=== PATIENT | female | born 1940 | race Caucasian/White ===

== ENCOUNTER 2016-06-13 09:10 | Inpatient (IN) ==
--- NOTE | 2016-06-13 09:21 | Emergency Department Note ---
Disposition Clinical Impression: Pancreatitis Qualifiers: Chronicity: acute Pancreatitis type: unspecified pancreatitis type Acute pancreatitis complication: unspecified Qualified Code(s): K85.90 - Acute pancreatitis without necrosis or infection, unspecified Disposition: Admitted As Inpatient Condition: Good Referrals: Gokul Howard MD [Primary Care Provider] - Forms: Work/School Release, ED Satisfaction Letter Time of Disposition: 11:25 Abdominal Pain HPI - General Chief Complaint: ED Abdominal Pain Stated Complaint: abdominal pain Time Seen by Provider: 06/13/16 09:20 Source: patient Mode of arrival: ambulatory Limitations: no limitations Nursing Notes Reviewed: Yes Vital Signs Reviewed: Yes - History of Present Illness HPI Narrative: 75-year-old female with history of pancreatitis status post a Whipple 5 years ago presents with worsening diffuse abdominal pain over the last 24 hours that is greatest in the left lower quadrant. This is associated with mild subjective fever. This is associated with 2 episodes of emesis today that were nonbloody and nonbilious. Patient describes one episode of diarrhea yesterday that was nonbloody and non-melanotic. She states that this is somewhat similar to prior episodes of pancreatitis, but the pain is not in her typical location. She states that she last was admitted for pancreatitis about 3 years ago, but has had 2 mild episodes that she self treated at home in the last year. She also admits to history of diverticulitis. She states that she is status post appendectomy. She denies any blurred vision, chest pain, shortness of breath, pain radiating to the back, changes in urination, vaginal bleeding or discharge. She denies any extremity pain or swelling. Pain Scale: 8 - Related Data Allergies Allergy/AdvReac Type Severity Reaction Status Date / Time JAIRON Inhibitors Allergy Anaphylaxis Verified 06/13/16 09:14 clindamycin Allergy Rash Verified 06/13/16 09:14 Penicillins Allergy Rash Verified 06/13/16 09:14 ivp dye AdvReac See Uncoded 02/08/16 09:15 Comments All systems ED: reviewed and negative except as stated. Abdominal Pain PMH - Past Medical History Medical history: Reports: diabetes, hypertension, myocardial infarction Female Surgical History: Reports: appendectomy, herniorrhaphy CRITICAL CARE NURSE PRACTITIONER history: Reports: no CRITICAL CARE NURSE PRACTITIONER history, bilateral tubal ligation Psychiatric history: Reports: no psych history - Social History Smoking status: Never smoker Alcohol use: Reports: none Drug use: Reports: none Physical Exam - Head Head exam: atraumatic, normocephalic, normal inspection - Eye Eye exam: Present: normal appearance, PERRL, EOMI - ENT ENT exam: normal exam, normal oropharynx, mucous membranes moist - Neck Neck exam: Present: normal inspection, full ROM, trachea midline - Chest Chest inspection: Present: normal inspection, symmetric chest wall rise - Respiratory Respiratory exam: Clear to auscultation bilaterally without wheezes rales or rhonchi Cardiovascular Cardiovascular exam: Present: regular rate, normal rhythm, normal heart sounds - Abdominal Exam Diminished soft and diffusely tender with greatest tenderness in the left lower quadrant. - Extremities Exam Extremities exam: Present: normal inspection, full ROM - Expanded Lower Extremity Exam Hip/Pelvis exam: Present: normal inspection, full ROM - Back Exam Back exam: Present: normal inspection, full ROM. Absent: tenderness, CVA tenderness (R), CVA tenderness (L) - Neurological Exam Neurological exam: Present: alert, oriented X3, CN II-XII intact - Psychiatric Psychiatric exam: Present: normal affect, normal mood - Skin Skin exam: Present: warm, dry, intact, normal color - General Limitations: no limitations General appearance: alert Course - Reevaluation(s) Reevaluation #1: Patient with lipase elevated to [address] scan concerning for pancreatitis without definite complication. White blood cells elevated at 14. Pain is improved, but not resolved after Dilaudid administration. Lactate is elevated to 2.3. No signs of an infectious process at this time concerning for sepsis. Patient received 1 L of normal saline and will receive a saline infusion. She will receive analgesia and be admitted to the hospitalist for further management. Time: 11:24 Reevaluation #2: Accepted by Dr. Kinsey for further care. Time: 11:30 Vital Signs Temperature 98.2 F 06/13/16 09:11 Pulse Rate 100 06/13/16 09:11 Respiratory Rate 17 06/13/16 09:11 Blood Pressure 221/94 06/13/16 09:11 O2 Sat by Pulse Oximetry 95 06/13/16 09:11 Temperature 98.2 F 06/13/16 09:11 Pulse Rate 82 06/13/16 11:28 Respiratory Rate 18 06/13/16 11:28 Blood Pressure 164/65 06/13/16 11:28 O2 Sat by Pulse Oximetry 97 06/13/16 11:28 Oxygen Delivery Oxygen Delivery Room Air Abdominal Pain - Lab Data Result diagrams: 06/13/16 09:56 06/13/16 09:56 Lab Results 06/13/16 06/13/16 06/13/16 Range/Units 09:56 09:56 09:56 WBC 14.1 H (4.3-11.1) K/mcL RBC 4.64 (3.82-4.97) M/mcL Hgb 13.1 (11.5-15.4) g/dL Hct 38.8 (35.3-44.9) % MCV 83.6 (83.0-100.0) fL MCH 28.2 (28.0-33.3) pg MCHC 33.8 (31.6-35.5) g/dL RDW 13.3 (11.5-14.5) % Plt Count 205 (140-400) K/mcL MPV 9.9 (9.4-12.4) fL Immature Gran % 0.3 (0-4) % Seg Neutrophils % 88.6 % Lymphocytes % 4.3 % Monocytes % 6.2 % Eosinophils % 0.2 % Basophils % 0.4 % Neutrophils # 12.5 H (1.6-8.9) K/mcL Lymphocytes # 0.6 (0.6-4.6) K/mcL Monocytes # 0.9 (0.0-1.3) K/mcL Eosinophils # 0.0 (0.0-0.6) K/mcL Basophils # 0.1 (0.0-0.2) K/mcL Sodium (136-145) mEq/L Potassium (3.5-4.5) mEq/L Chloride (98-109) mEq/L Carbon Dioxide (19-29) mEq/L BUN (7-20) mg/dL Creatinine (0.57-1.11) mg/dL Est GFR ( Amer) (> 60) Est GFR (Non-Af Amer) (> 60) BUN/Creatinine Ratio (6-26) Glucose (70-99) mg/dL Calculated Osmolality (280-300) Lactic Acid 2.3 H (0.5-2.2) mmol/L Calcium (8.6-10.8) mg/dL Total Bilirubin (0.2-1.2) mg/dL Direct Bilirubin (0.0-0.5) mg/dL Indirect Bilirubin (0.0-1.2) mg/dL AST (5-34) Units/L ALT (0-55) Units/L Alkaline Phosphatase (38-126) Units/L Troponin I 0.00 (0-0.03) ng/mL Serum Total Protein (6.0-8.3) g/dL Albumin (3.5-5.0) g/dL Globulin (2.4-3.5) g/dL Albumin/Globulin Ratio (1.1-2.2) Lipase (8-78) Units/L 06/13/16 Range/Units 09:56 WBC (4.3-11.1) K/mcL RBC (3.82-4.97) M/mcL Hgb (11.5-15.4) g/dL Hct (35.3-44.9) % MCV (83.0-100.0) fL MCH (28.0-33.3) pg MCHC (31.6-35.5) g/dL RDW (11.5-14.5) % Plt Count (140-400) K/mcL MPV (9.4-12.4) fL Immature Gran % (0-4) % Seg Neutrophils % % Lymphocytes % % Monocytes % % Eosinophils % % Basophils % % Neutrophils # (1.6-8.9) K/mcL Lymphocytes # (0.6-4.6) K/mcL Monocytes # (0.0-1.3) K/mcL Eosinophils # (0.0-0.6) K/mcL Basophils # (0.0-0.2) K/mcL Sodium 139 (136-145) mEq/L Potassium 3.9 (3.5-4.5) mEq/L Chloride 104 (98-109) mEq/L Carbon Dioxide 25 (19-29) mEq/L BUN 11 (7-20) mg/dL Creatinine 0.84 (0.57-1.11) mg/dL Est GFR ( Amer) > 60 (> 60) Est GFR (Non-Af Amer) > 60 (> 60) BUN/Creatinine Ratio 13 (6-26) Glucose 264 H (70-99) mg/dL Calculated Osmolality 297 (280-300) Lactic Acid (0.5-2.2) mmol/L Calcium 9.2 (8.6-10.8) mg/dL Total Bilirubin 0.6 (0.2-1.2) mg/dL Direct Bilirubin 0.3 (0.0-0.5) mg/dL Indirect Bilirubin 0.3 (0.0-1.2) mg/dL AST 20 (5-34) Units/L ALT 19 (0-55) Units/L Alkaline Phosphatase 77 (38-126) Units/L Troponin I (0-0.03) ng/mL Serum Total Protein 7.3 (6.0-8.3) g/dL Albumin 3.7 (3.5-5.0) g/dL Globulin 3.6 H (2.4-3.5) g/dL Albumin/Globulin Ratio 1.0 L (1.1-2.2) Lipase 1414 H (8-78) Units/L - EKG Data EKG attestation: Yes I reviewed and interpreted this EKG. EKG results narrative: Normal sinus rhythm at 91 with normal axis and intervals. No ST elevation or depression. No T-wave inversions or flattening. No pathologic Q waves. No EKG available sign.
[2016-06-13] MEDS ORDERED: Ondansetron 4 MG/2 ML VIAL IV STA (09:37)
[2016-06-13] MEDS ORDERED: *HR* HYDROmorphone (PF) 1 MG/ML SYRINGE IVP ONE (09:38)
[2016-06-13] MEDS ORDERED: 0.9 % Sodium Chloride 1,000 ML IVC ONE (09:44)
[2016-06-13 10:06] LABS: Basophils # 0.1 K/mcL (0.0-0.2); Basophils % 0.4 %; Eosinophils % 0.2 %; Hematocrit 38.8 % (35.3-44.9); Hemoglobin 13.1 g/dL (11.5-15.4); Immature Granulocytes % 0.3 % (0-4); Lymphocytes # 0.6 K/mcL (0.6-4.6); Lymphocytes % 4.3 %; Mean Corpuscular HGB Conc 33.8 g/dL (31.6-35.5); Mean Corpuscular Hemoglobin 28.2 pg (28.0-33.3); Mean Corpuscular Volume 83.6 fL (83.0-100.0); Mean Platelet Volume 9.9 fL (9.4-12.4); Monocytes # 0.9 K/mcL (0.0-1.3); Monocytes % 6.2 %; Neutrophils # 12.5 K/mcL (1.6-8.9); Platelet Count 205 K/mcL (140-400); Red Blood Count 4.64 M/mcL (3.82-4.97); Red Cell Distribution Width 13.3 % (11.5-14.5); Segmented Neutrophils % 88.6 %
[2016-06-13 10:23] LABS: Alanine Aminotransferase 19 Units/L (0-55); Albumin 3.7 g/dL (3.5-5.0); Alkaline Phosphatase 77 Units/L (38-126); Aspartate Amino Transferase 20 Units/L (5-34); BUN/Creatinine Ratio 13 (6-26); Bilirubin,Direct 0.3 mg/dL (0.0-0.5); Bilirubin,Indirect 0.3 mg/dL (0.0-1.2); Bilirubin,Total 0.6 mg/dL (0.2-1.2); Blood Urea Nitrogen 11 mg/dL (7-20); Calcium 9.2 mg/dL (8.6-10.8); Carbon Dioxide 25 mEq/L (19-29); Chloride 104 mEq/L (98-109); Globulin 3.6 g/dL (2.4-3.5); Glucose 264 mg/dL (70-99); Osmolality,Calculated 297 (280-300); Potassium 3.9 mEq/L (3.5-4.5); Sodium 139 mEq/L (136-145); Total Protein 7.3 g/dL (6.0-8.3); eGFR For African Americans > 60 (> 60); eGFR For Non-African Americans > 60 (> 60)
[2016-06-13 10:46] LABS: Lipase 1414 Units/L (8-78)
--- NOTE | 2016-06-13 11:12 | Emergency Department Note ---
Disposition Clinical Impression: Pancreatitis Disposition: Admitted As Inpatient Condition: Good General Adult HPI - General Chief complaint: ED Abdominal Pain Stated complaint: abdominal pain Time Seen by Provider: 06/13/16 09:20 Source: patient Mode of arrival: ambulatory Limitations: no limitations - History of Present Illness Pain Scale: 6 - Related Data Home Medications Medication Instructions Recorded Confirmed Aspirin/Calcium Carbonate/Mag 325 mg PO DAILY 06/13/16 06/13/16 [Aspirin Buffered 325 mg Tab] Biotrust Ic-5 2 cap PO DAILY 06/13/16 06/13/16 LORazepam [Ativan] 0.5 mg PO BID PRN 06/13/16 06/13/16 Metformin HCl [Metformin HCl ER] 1,000 mg PO DAILY 06/13/16 06/13/16 Metoprolol XL (24 HR) Succ [Toprol 25 mg PO BID 06/13/16 06/13/16 XL] Pantoprazole Sodium [Protonix] 40 mg PO DAILY 06/13/16 06/13/16 Allergies Allergy/AdvReac Type Severity Reaction Status Date / Time JAIRON Inhibitors Allergy Anaphylaxis Verified 06/13/16 09:14 clindamycin Allergy Rash Verified 06/13/16 09:14 Penicillins Allergy Rash Verified 06/13/16 09:14 ivp dye Allergy See Uncoded 06/13/16 11:42 Comments Past Medical History - Past Medical History Medical history: Reports: diabetes, hypertension, myocardial infarction Surgical history: Reports: appendectomy, cholecystectomy Psychiatric history: Reports: no psych history MANGANESE BREAKER history: Reports: no MANGANESE BREAKER history, bilateral tubal ligation - Social History Smoking Status: Never smoker Smokeless Tobacco Status: No Alcohol use: Reports: none Drug use: Reports: none Physical Exam - General Limitations: no limitations General appearance: alert Course - Reevaluation(s) Reevaluation #1: I saw the patient with the resident, Dr. Pandya. Patient presented with left upper quadrant and left lower quadrant abdominal pain for several days. On exam she is mostly tender to the left lower quadrant. She has prior history of pancreatitis and says it feels like that. 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 Patient has had some pain relief with the medicine she has been given. Laboratory work shows a lipase of 1400. CAT scan shows a lot of inflammatory changes around the pancreas consistent with pancreatitis. Patient will need to be admitted to the hospital. She has no indications of acute surgical abdominal process. Time: 11:12 Vital Signs Temperature 98.2 F 06/13/16 09:11 Pulse Rate 100 06/13/16 09:11 Respiratory Rate 17 06/13/16 09:11 Blood Pressure 221/94 06/13/16 09:11 O2 Sat by Pulse Oximetry 95 06/13/16 09:11 Temperature 100.2 F H 06/13/16 18:29 Pulse Rate 80 06/13/16 18:29 Respiratory Rate 15 06/13/16 18:29 Blood Pressure 162/59 06/13/16 18:29 O2 Sat by Pulse Oximetry 95 06/13/16 18:29 Oxygen Delivery Oxygen Delivery Room Air Medical Decision Making - Lab Data Result diagrams: 06/13/16 09:56 06/13/16 09:56 Lab Results 06/13/16 06/13/16 06/13/16 Range/Units 09:56 09:56 09:56 WBC 14.1 H (4.3-11.1) K/mcL RBC 4.64 (3.82-4.97) M/mcL Hgb 13.1 (11.5-15.4) g/dL Hct 38.8 (35.3-44.9) % MCV 83.6 (83.0-100.0) fL MCH 28.2 (28.0-33.3) pg MCHC 33.8 (31.6-35.5) g/dL RDW 13.3 (11.5-14.5) % Plt Count 205 (140-400) K/mcL MPV 9.9 (9.4-12.4) fL Immature Gran % 0.3 (0-4) % Seg Neutrophils % 88.6 % Lymphocytes % 4.3 % Monocytes % 6.2 % Eosinophils % 0.2 % Basophils % 0.4 % Neutrophils # 12.5 H (1.6-8.9) K/mcL Lymphocytes # 0.6 (0.6-4.6) K/mcL Monocytes # 0.9 (0.0-1.3) K/mcL Eosinophils # 0.0 (0.0-0.6) K/mcL Basophils # 0.1 (0.0-0.2) K/mcL Sodium (136-145) mEq/L Potassium (3.5-4.5) mEq/L Chloride (98-109) mEq/L Carbon Dioxide (19-29) mEq/L BUN (7-20) mg/dL Creatinine (0.57-1.11) mg/dL Est GFR ( Amer) (> 60) Est GFR (Non-Af Amer) (> 60) BUN/Creatinine Ratio (6-26) Glucose (70-99) mg/dL Est Mean Plasma Glucose mg/dl Hemoglobin A1c ( - 5.6) % Calculated Osmolality (280-300) Lactic Acid 2.3 H (0.5-2.2) mmol/L Calcium (8.6-10.8) mg/dL Total Bilirubin (0.2-1.2) mg/dL Direct Bilirubin (0.0-0.5) mg/dL Indirect Bilirubin (0.0-1.2) mg/dL AST (5-34) Units/L ALT (0-55) Units/L Alkaline Phosphatase (38-126) Units/L Troponin I 0.00 (0-0.03) ng/mL Serum Total Protein (6.0-8.3) g/dL Albumin (3.5-5.0) g/dL Globulin (2.4-3.5) g/dL Albumin/Globulin Ratio (1.1-2.2) Lipase (8-78) Units/L 06/13/16 06/13/16 Range/Units 09:56 09:56 WBC (4.3-11.1) K/mcL RBC (3.82-4.97) M/mcL Hgb (11.5-15.4) g/dL Hct (35.3-44.9) % MCV (83.0-100.0) fL MCH (28.0-33.3) pg MCHC (31.6-35.5) g/dL RDW (11.5-14.5) % Plt Count (140-400) K/mcL MPV (9.4-12.4) fL Immature Gran % (0-4) % Seg Neutrophils % % Lymphocytes % % Monocytes % % Eosinophils % % Basophils % % Neutrophils # (1.6-8.9) K/mcL Lymphocytes # (0.6-4.6) K/mcL Monocytes # (0.0-1.3) K/mcL Eosinophils # (0.0-0.6) K/mcL Basophils # (0.0-0.2) K/mcL Sodium 139 (136-145) mEq/L Potassium 3.9 (3.5-4.5) mEq/L Chloride 104 (98-109) mEq/L Carbon Dioxide 25 (19-29) mEq/L BUN 11 (7-20) mg/dL Creatinine 0.84 (0.57-1.11) mg/dL Est GFR ( Amer) > 60 (> 60) Est GFR (Non-Af Amer) > 60 (> 60) BUN/Creatinine Ratio 13 (6-26) Glucose 264 H (70-99) mg/dL Est Mean Plasma Glucose 169 mg/dl Hemoglobin A1c 7.5 H ( - 5.6) % Calculated Osmolality 297 (280-300) Lactic Acid (0.5-2.2) mmol/L Calcium 9.2 (8.6-10.8) mg/dL Total Bilirubin 0.6 (0.2-1.2) mg/dL Direct Bilirubin 0.3 (0.0-0.5) mg/dL Indirect Bilirubin 0.3 (0.0-1.2) mg/dL AST 20 (5-34) Units/L ALT 19 (0-55) Units/L Alkaline Phosphatase 77 (38-126) Units/L Troponin I (0-0.03) ng/mL Serum Total Protein 7.3 (6.0-8.3) g/dL Albumin 3.7 (3.5-5.0) g/dL Globulin 3.6 H (2.4-3.5) g/dL Albumin/Globulin Ratio 1.0 L (1.1-2.2) Lipase 1414 H (8-78) Units/L Attestation Statement - Attestation Attestation: I, Dr. Apple, examined this patient [id number] and my medical decision- making was reviewed with Dr. Pandya, Resident Physician. I agree with the documented findings, disposition and treatment plan as described except to the extent set forth below. Please see my progress notes for details.
[2016-06-13] MEDS ORDERED: Naloxone 0.4 MG/ML INJ IVP PRN (12:11)
[2016-06-13] MEDS ORDERED: D5% in Water 1,000 ML IVC PRN (12:18)
[2016-06-13] MEDS ORDERED: Dextrose Gel 15 GM PO PRN ×2 (12:18)
[2016-06-13] MEDS ORDERED: *HR* Dextrose 50 % in Water (Syg) 50 ML SYRINGE IVP PRN (12:18)
--- NOTE | 2016-06-13 12:31 | Internal Med History&Physical ---
Date of Encounter: 06/13/16 Time of Encounter: 12:19 Assessment and Plan (1) Pancreatitis Current visit: Yes Status: Acute Patient had whipple surgery in 2007 for pancreatic mass and has had recurrent pancreatitis since that time. She reports severe abdominal pain, nausea and vomiting today. Lipase elevated to 1414. Lactate of 2.3. Abdominal CT showed acute interstitial edematous pancreatitis, necrosis could not be evaluated as study was non-contrasted. IV fluids 0.9NS at 100mL/hr NPO IVP dilaudid PRN for abdominal pain IVP zofran PRN for nausea Narcan PRN for respiratory depression. Qualifiers: Chronicity: acute Pancreatitis type: unspecified pancreatitis type Acute pancreatitis complication: unspecified Qualified Code(s): K85.90 - Acute pancreatitis without necrosis or infection, unspecified (2) Type 2 diabetes mellitus Current visit: Yes Status: Acute check Hgb A1c hold metformin check blood sugars Q6hrs while NPO Sliding scale correction dose Q6 hrs hypoglycemic protocol. Qualifiers: Diabetes mellitus complication status: with neurologic complications Diabetes mellitus complication detail: with polyneuropathy Diabetes mellitus intermediate card tender insulin use: without intermediate card tender use Qualified Code(s): E11.42 - Type 2 diabetes mellitus with diabetic polyneuropathy (3) Hypertension Current visit: Yes Status: Acute Patient NPO for pancreatitis. 2.5mg Metoprolol IVP Q8hr. Qualifiers: Hypertension type: essential hypertension Qualified Code(s): I10 - Essential (primary) hypertension (4) DVT prophylaxis Current visit: Yes Status: Acute Ambulate TID anti-embolic stockings Lovenox 40mg SQ daily Internal Medicine - H&P: HPI Chief complaint: abdominal pain, N/V Admitted From: Emergency Dept Plans for Post Hospital Care: Home History of present illness: Ms. Martin is a 75 year old female with hypertension, diabetes, history of pancreatic mass s/p whipple (2007), recurrent pancreatitis who presented to the emergency department today with, complaints of abdominal pain and vomiting. She reports she woke this morning at 4 am with severe abdominal pain and vomited 3 times this morning. Pain was generalize, but more severe on her left side, and was somewhat relieved by the pain medication she received in the ED. She also reports chills. She states that for the last 3 days, she has had mild nausea and a poor appetite, as well as some diarrhea. She also has a mild sore throat that started a few hours ago, along with a mild headache. She denies any chest pain, palpitations, sweats, lightheadedness, numbness or tingling. Evaluation in the ED included an abdominal CT which reported she is s/p whipple with acute interstitial edematous pancreatitis. Lipase was elevated to 1414, lactate was elevated to 2.3. Her WBC was elevated to 14.1, and she was hyperglycemic with blood sugar of 264. ON exam, patient was alert and oriented, in no acute distress. Heart has regular rate and rhythm, lungs are clear bilaterally to auscultation. Past Med Surg Social Fam HX - Past Medical History Medical history: diabetes, GERD, hypertension, myocardial infarction, other ( pancreatic mass s/p whipple, recurrent pancreatitis) Psychiatric history: no psych history - Past Surgical History Surgical History: appendectomy, cholecystectomy, other ([id number]) - Social History Smoking Status: Former smoker (25 pack year history) Smokeless Tobacco Status: No Alcohol use: none, rarely Drug use: none - Family History Mother Living Status: Hx Family Cardiac Disorders: Yes Hx Family Cancer: Yes Father Living Status: Hx Family Cancer: Yes Internal Medicine - H&P: Meds Aspirin/Calcium Carbonate/Mag [Aspirin Buffered 325 mg Tab] 325 mg PO DAILY [History] Biotrust Ic-5 2 cap PO DAILY 06/13/16 [History] LORazepam [Ativan] 0.5 mg PO BID PRN 06/13/16 [History] Metformin HCl [Metformin HCl ER] 1,000 mg PO DAILY 06/13/16 [History] Metoprolol XL (24 HR) Succ [Toprol XL] 25 mg PO BID 06/13/16 [History] Pantoprazole Sodium [Protonix] 40 mg PO DAILY 06/13/16 [History] Allergies JAIRON Inhibitors Allergy (Verified 06/13/16 09:14) Anaphylaxis clindamycin Allergy (Verified 06/13/16 09:14) Rash Penicillins Allergy (Verified 06/13/16 09:14) Rash ivp dye Allergy (Uncoded 06/13/16 11:42) See Comments Patient unsure what her reaction was- All Systems PM: A 10-system review of systems was performed and is negative for pertinent findings except as documented above in the HPI. - Constitutional Constitutional: chills, no fever(s), no night sweats - EENT Eyes: no change in vision, no discharge, no pain, no photophobia Ears: no ear discharge, no ear pain, no tinnitus Nose, mouth and throat: sore throat, no dysphagia, no nasal discharge, no neck pain - Cardiovascular Cardiovascular ROS IM: no chest pain, no diaphoresis, no dyspnea, no lightheadedness, no palpitations, no syncope - Respiratory Respiratory: no cough, no dyspnea, no wheezing, no excessive phlegm production - Gastrointestinal Gastrointestinal: abdominal pain, diarrhea, nausea, vomiting, no hematemesis, no hematochezia, no melena - Genitourinary Genitourinary: no change in urinary stream, no dysuria, no flank pain, no hematuria - Musculoskeletal Musculoskeletal ROS IM: no numbness, no tingling - Integumentary Integumentary IM: no rash, no unusual bruising - Neurological Neurological ROS: headache(s), no confusion, no convulsions, no focal weakness, no numbness, no tingling, no tremor(s) - Hematologic/Lymphatic Hematologic/Lymphatic: no easy bruising - Constitutional Vitals: Temp Pulse Resp BP Pulse Ox 98.2 F 82 18 164/65 97 06/13/16 09:11 06/13/16 11:28 06/13/16 11:28 06/13/16 11:28 06/13/16 11:28 General appearance: Present: A&O X 3, pleasant, no acute distress - Head Head exam: Present: atraumatic, normocephalic - Eye Eye exam: Present: PERRL, conjuntiva pink, sclera anicteric Pupils: Present: PERRL - Neck Neck exam general surgery: Present: supple, trachea midline. Absent: lymphadenopathy - Respiratory Respiratory exam: Present: CTAB. Absent: accessory muscle use, rales, rhonchi, wheezes - Cardiovascular Cardiovascular exam: Present: RRR, +S1, +S2. Absent: diastolic murmur, gallop, rubs, systolic murmur - GI/Abdominal GI/Abdominal exam: Present: normal bowel sounds, soft, tenderness (diffuse, but moreso in the LUQ and LLQ). Absent: distended - Extremities Exam Extremities exam: Present: warm, radial pulses palpable and symetrical. Absent : calf tenderness, cyanotic, pedal edema - Neurological Exam Neurological exam: Present: CN II-XII intact, oriented X3, no focal deficits. Absent: facial droop, speech deficit - Skin Skin exam: Present: dry, intact Internal Med - H&P Results - Labs CBC & Chem 7: 06/13/16 09:56 06/13/16 09:56 Labs: All Lab Results (24 Hours) 06/13/16 06/13/16 06/13/16 Range/Units 09:56 09:56 09:56 WBC 14.1 H (4.3-11.1) K/mcL RBC 4.64 (3.82-4.97) M/mcL Hgb 13.1 (11.5-15.4) g/dL Hct 38.8 (35.3-44.9) % MCV 83.6 (83.0-100.0) fL MCH 28.2 (28.0-33.3) pg MCHC 33.8 (31.6-35.5) g/dL RDW 13.3 (11.5-14.5) % Plt Count 205 (140-400) K/mcL MPV 9.9 (9.4-12.4) fL Immature Gran % 0.3 (0-4) % Seg Neutrophils % 88.6 % Lymphocytes % 4.3 % Monocytes % 6.2 % Eosinophils % 0.2 % Basophils % 0.4 % Neutrophils # 12.5 H (1.6-8.9) K/mcL Lymphocytes # 0.6 (0.6-4.6) K/mcL Monocytes # 0.9 (0.0-1.3) K/mcL Eosinophils # 0.0 (0.0-0.6) K/mcL Basophils # 0.1 (0.0-0.2) K/mcL Sodium (136-145) mEq/L Potassium (3.5-4.5) mEq/L Chloride (98-109) mEq/L Carbon Dioxide (19-29) mEq/L BUN (7-20) mg/dL Creatinine (0.57-1.11) mg/dL Est GFR ( Amer) (> 60) Est GFR (Non-Af Amer) (> 60) BUN/Creatinine Ratio (6-26) Glucose (70-99) mg/dL Calculated Osmolality (280-300) Lactic Acid 2.3 H (0.5-2.2) mmol/L Calcium (8.6-10.8) mg/dL Total Bilirubin (0.2-1.2) mg/dL Direct Bilirubin (0.0-0.5) mg/dL Indirect Bilirubin (0.0-1.2) mg/dL AST (5-34) Units/L ALT (0-55) Units/L Alkaline Phosphatase (38-126) Units/L Troponin I 0.00 (0-0.03) ng/mL Serum Total Protein (6.0-8.3) g/dL Albumin (3.5-5.0) g/dL Globulin (2.4-3.5) g/dL Albumin/Globulin Ratio (1.1-2.2) Lipase (8-78) Units/L // Range/Units 09:56 WBC (4.3-11.1) K/mcL RBC (3.82-4.97) M/mcL Hgb (11.5-15.4) g/dL Hct (35.3-44.9) % MCV (83.0-100.0) fL MCH (28.0-33.3) pg MCHC (31.6-35.5) g/dL RDW (11.5-14.5) % Plt Count (140-400) K/mcL MPV (9.4-12.4) fL Immature Gran % (0-4) % Seg Neutrophils % % Lymphocytes % % Monocytes % % Eosinophils % % Basophils % % Neutrophils # (1.6-8.9) K/mcL Lymphocytes # (0.6-4.6) K/mcL Monocytes # (0.0-1.3) K/mcL Eosinophils # (0.0-0.6) K/mcL Basophils # (0.0-0.2) K/mcL Sodium 139 (136-145) mEq/L Potassium 3.9 (3.5-4.5) mEq/L Chloride 104 (98-109) mEq/L Carbon Dioxide 25 (19-29) mEq/L BUN 11 (7-20) mg/dL Creatinine 0.84 (0.57-1.11) mg/dL Est GFR ( Amer) > 60 (> 60) Est GFR (Non-Af Amer) > 60 (> 60) BUN/Creatinine Ratio 13 (6-26) Glucose 264 H (70-99) mg/dL Calculated Osmolality 297 (280-300) Lactic Acid (0.5-2.2) mmol/L Calcium 9.2 (8.6-10.8) mg/dL Total Bilirubin 0.6 (0.2-1.2) mg/dL Direct Bilirubin 0.3 (0.0-0.5) mg/dL Indirect Bilirubin 0.3 (0.0-1.2) mg/dL AST 20 (5-34) Units/L ALT 19 (0-55) Units/L Alkaline Phosphatase 77 (38-126) Units/L Troponin I (0-0.03) ng/mL Serum Total Protein 7.3 (6.0-8.3) g/dL Albumin 3.7 (3.5-5.0) g/dL Globulin 3.6 H (2.4-3.5) g/dL Albumin/Globulin Ratio 1.0 L (1.1-2.2) Lipase 1414 H (8-78) Units/L - Diagnostic Studies CT scan - abdomen Additional comments: Abdomen/Pelvis CT 06/13/16 09:51 IMPRESSION: 1. 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 Necrosis cannot be evaluated for given lack of intravenous contrast. 2. No drainable fluid collection or free air. D/ / 06/13/2016 11:16:22 Jazzy Vazquez MD / rusty Interpreting Provider: Jazzy Vazquez MD
[2016-06-13 13:32] LABS: Hemoglobin A1C 7.5 %
[2016-06-13] MEDS: *HR* HYDROmorphone (PF) 1 MG/ML SYRINGE IVP PRN ×3 (13:59→23:03)
[2016-06-13] MEDS: Pantoprazole 40 MG VIAL IVP SCH (13:59)
[2016-06-13] MEDS: 0.9 % Sodium Chloride 1,000 ML IVC SCH ×3 (14:04→23:53)
[2016-06-13] MEDS ORDERED: Insulin LISPRO 300 UNITS/3 ML VIAL SQ SCH ×2 (16:30→21:00)
--- NOTE | 2016-06-13 16:56 | Event Note ---
Date of Encounter: 06/13/16 Time of Encounter: 16:56 patient seen and examined with urse practitioner. Agree with assessment and plan
[2016-06-13 17:16] LABS: Bilirubin,Urine Negative (Negative); Blood,Urine Negative (Negative); Clarity,Urine Cloudy (Clear); Color,Urine Yellow (Yellow); Glucose,Urine (UA) 100 mg/dL (Normal); Ketones,Urine Negative (Negative); Leukocyte Esterase,Urine Negative (Negative); Nitrite,Urine Negative (Negative); PH,Urine 6.5 pH Units (5.0-8.0); Protein,Urine 30 mg/dL (Neg-Trace); Specific Gravity,Urine 1.021 (1.010-1.025); Urobilinogen,Urine Normal (Normal)
[2016-06-13 17:21] LABS: Bacteria,Urine Few per hpf (None-Few); Hyaline Casts,Urine None Seen per lpf (None-Few); RBC,Urine 0-3 per hpf (0-3); Squamous Epithelial Cell,Urine Many per lpf (None-Few); WBC,Urine 0-3 per hpf (0-3)
--- NOTE | 2016-06-13 17:22 | Electrocardiograph Report ---
[place] [id number] Test Date: 2016-06-13 Pat Name: Yessenia Martin Department: 105 Room: 3B13 Gender: F Configuration Management Manager: : 1940 Requested By: Antoni Pandya Order Number: [id number] Reading MD: Mila Gregg Measurements Intervals [place] Rate: 91 P: 81 TN: 188 QRS: 43 QRSD: 89 T: 91 QT: 361 QTc: 410 Interpretive Statements SINUS RHYTHM POSSIBLE LEFT ATRIAL ENLARGEMENT [-0.1mV P WAVE IN V1/V2] Electronically Signed On 06-13-2016 17:21:12 EDT by Mila Gregg
[2016-06-13] MEDS: *HR* Metoprolol 5 MG/5 ML VIAL IVP SCH ×2 (17:41→23:53)
[2016-06-13] MEDS: Insulin LISPRO 300 UNITS/3 ML VIAL SQ SCH ×2 (17:41→23:47)
[2016-06-14 05:19] LABS: BUN/Creatinine Ratio 13 (6-26); Blood Urea Nitrogen 9 mg/dL (7-20); Calcium 8.4 mg/dL (8.6-10.8); Carbon Dioxide 26 mEq/L (19-29); Chloride 107 mEq/L (98-109); Chol/HDL Ratio 3.5 (0-4.9); Cholesterol 152 mg/dL (< 200); Glucose 140 mg/dL (70-99); HDL Cholesterol 44 mg/dL (40-59); LDL Cholesterol,Calculated 91 mg/dL (0-99); Osmolality,Calculated 293 (280-300); Potassium 3.8 mEq/L (3.5-4.5); Sodium 141 mEq/L (136-145); Triglycerides 87 mg/dL (< 150); eGFR For African Americans > 60 (> 60); eGFR For Non-African Americans > 60 (> 60)
[2016-06-14 05:31] LABS: Basophils % 0.4 %; Eosinophils # 0.1 K/mcL (0.0-0.6); Immature Granulocytes % 0.4 % (0-4); Lymphocytes # 1.3 K/mcL (0.6-4.6); Lymphocytes % 18.7 %; Mean Corpuscular HGB Conc 32.1 g/dL (31.6-35.5); Mean Corpuscular Hemoglobin 27.7 pg (28.0-33.3); Mean Corpuscular Volume 86.4 fL (83.0-100.0); Mean Platelet Volume 9.9 fL (9.4-12.4); Monocytes # 0.8 K/mcL (0.0-1.3); Monocytes % 11.2 %; Neutrophils # 4.8 K/mcL (1.6-8.9); Platelet Count 167 K/mcL (140-400); Red Blood Count 3.82 M/mcL (3.82-4.97); Red Cell Distribution Width 13.7 % (11.5-14.5); Segmented Neutrophils % 67.3 %
[2016-06-14] MEDS: *HR* HYDROmorphone (PF) 1 MG/ML SYRINGE IVP PRN ×5 (05:34→20:05)
[2016-06-14 05:39] LABS: Hemoglobin 10.6 g/dL (11.5-15.4)
[2016-06-14] MEDS: Insulin LISPRO 300 UNITS/3 ML VIAL SQ SCH ×3 (07:53→19:18)
[2016-06-14] MEDS: 0.9 % Sodium Chloride 1,000 ML IVC SCH ×4 (08:05→20:06)
[2016-06-14] MEDS: Pantoprazole 40 MG VIAL IVP SCH (08:12)
[2016-06-14] MEDS: *HR* Metoprolol 5 MG/5 ML VIAL IVP SCH (08:12)
[2016-06-14] MEDS: Ondansetron 4 MG/2 ML VIAL IVP PRN (10:50)
--- NOTE | 2016-06-14 11:51 | Internal Med Progress Note ---
Date of Encounter: 06/14/16 Time of Encounter: 09:30 - Assessment and plan (1) Pancreatitis Current Visit: Yes Status: Acute Assessment and plan: Patient's pain is improving. Continue nothing by mouth but allow by mouth meds and ice chips. Urinalysis negative. Leukocytosis resolved. No indication for antibiotics at this time. We will continue IV fluids, pain control, antiemetics and reevaluate tomorrow. Possibly start advancing his diet tomorrow pending clinical outcomes. ITS Impressions Abdomen/Pelvis CT 06/13/16 09:51 IMPRESSION: 1. 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 Necrosis cannot be evaluated for given lack of intravenous contrast. 2. No drainable fluid collection or free air. D/ / 06/13/2016 11:16:22 Jazzy Vazquez MD / rusty Interpreting Provider: Jazzy Vazquez MD Chest X-Ray 06/13/16 18:46 IMPRESSION: No acute cardiopulmonary process. D/ / Sandeep Vazquez MD / Sandeep Vazquez MD Interpreting Provider: Sandeep Vazquez MD Qualifiers: Chronicity: acute Pancreatitis type: unspecified pancreatitis type Acute pancreatitis complication: unspecified Qualified Code(s): K85.90 - Acute pancreatitis without necrosis or infection, unspecified (2) Leukocytosis Current Visit: Yes Status: Resolved Qualifiers: Leukocytosis type: unspecified Qualified Code(s): D72.829 - Elevated white blood cell count, unspecified (3) Type 2 diabetes mellitus Current Visit: Yes Status: Chronic Assessment and plan: Relatively well controlled at home with an A1c of 7.5%. Continue sliding scale while admitted. Qualifiers: Diabetes mellitus complication status: with neurologic complications Diabetes mellitus complication detail: with polyneuropathy Diabetes mellitus intermediate manager insulin use: without chcf use Qualified Code(s): E11.42 - Type 2 diabetes mellitus with diabetic polyneuropathy (4) Hypertension Current Visit: Yes Status: Chronic Assessment and plan: Controlled. At home, she is on Toprol-XL 25 mg twice a day, will continue and monitor Qualifiers: Hypertension type: essential hypertension Qualified Code(s): I10 - Essential (primary) hypertension (5) DVT prophylaxis Current Visit: Yes Status: Acute Assessment and plan: Subcutaneous Lovenox - Subjective Interval history: Patient seen and examined. On examination, patient resting supine in bed. Patient alert and oriented 3 and states that her pain has lessened but still is hurting on the left side of her abdomen. She states that she does not have any pain if she does not move. She states that movement and taking deep breaths exacerbates the pain to the left upper quadrant. She denies any nausea or vomiting. - Constitutional Vitals: Temp Pulse Resp BP Pulse Ox 98.4 F 78 16 132/65 94 06/14/16 07:39 06/14/16 07:39 06/14/16 07:39 06/14/16 07:39 06/14/16 07:39 General appearance: Present: A&O X 3, pleasant, no acute distress, answers questions appropriately - Head Head exam: Present: atraumatic, normocephalic - Eye Eye exam: Present: PERRL, conjuntiva pink, sclera anicteric Pupils: Present: PERRL - Neck Neck exam general surgery: Present: supple, trachea midline. Absent: lymphadenopathy - Respiratory Respiratory exam: Present: CTAB. Absent: accessory muscle use, rales, respiratory distress, rhonchi, wheezes - Cardiovascular Cardiovascular exam: Present: RRR, +S1, +S2. Absent: diastolic murmur, gallop, rubs, systolic murmur - GI/Abdominal GI/Abdominal exam: Present: normal bowel sounds, soft, tenderness (LUQ, LLQ), no peritoneal signs. Absent: distended - Extremities Exam Extremities exam: Present: warm, radial pulses palpable and symetrical. Absent : calf tenderness, cyanotic, pedal edema - Neurological Exam Neurological exam: Present: alert, CN II-XII intact, normal gait, oriented X3, no focal deficits, strengths equal and symetr throughout. Absent: pronater drift, facial droop, speech deficit - Skin Skin exam: Present: dry, intact, pallor, warm Internal Medicine: Result - Labs CBC & Chem 7: 06/14/16 04:37 06/14/16 04:37 Labs: Short CBC 06/14/16 Range/Units 04:37 WBC 7.1 (4.3-11.1) K/mcL Hgb 10.6 L D (11.5-15.4) g/dL Hct 33.0 L (35.3-44.9) % Plt Count 167 (140-400) K/mcL Neutrophils # 4.8 (1.6-8.9) K/mcL BMP 06/14/16 04:37 Sodium 141 Potassium 3.8 Chloride 107 Carbon Dioxide 26 BUN 9 Creatinine 0.71 Glucose 140 H Calcium 8.4 L Urine 06/13/16 Range/Units 16:35 Urine Color Yellow (Yellow) Urine Clarity Cloudy A (Clear) Urine pH 6.5 (5.0-8.0) pH Units Ur Specific [place] 1.021 (1.010-1.025) Urine Protein 30 H (Neg-Trace) mg/dL Urine Glucose (UA) 100 H (Normal) mg/dL - Impressions Impressions Chest X-Ray 06/13/16 18:46 IMPRESSION: No acute cardiopulmonary process. D/ / Sandeep Vazquez MD / Sandeep Vazquez MD Interpreting Provider: Sandeep Vazquez MD - VTE Documentation of Mechanical Device: Graduated compression elastic hosiery Consult Discharge Plan - Plan Referrals: Gokul Howard MD [Primary Care Provider] -
[2016-06-14] MEDS ORDERED: *HR* LORazepam 0.5 MG TABLET PO PRN (11:55)
[2016-06-14] MEDS: Metoprolol XL (24 HR) Succ 25 MG TAB.ER.24H PO SCH ×2 (12:11→20:05)
[2016-06-14] MEDS: *HR* Enoxaparin 40 MG/0.4 ML SYRINGE SQ SCH (15:23)
[2016-06-15] MEDS: Insulin LISPRO 300 UNITS/3 ML VIAL SQ SCH ×5 (00:10→23:56)
[2016-06-15] MEDS: Ondansetron 4 MG/2 ML VIAL IVP PRN ×2 (01:14→18:06)
[2016-06-15] MEDS: *HR* HYDROmorphone (PF) 1 MG/ML SYRINGE IVP PRN (01:15)
[2016-06-15] MEDS: *HR* Promethazine 25 MG/ML VIAL IVP PRN ×2 (03:35→20:45)
[2016-06-15] MEDS: 0.9 % Sodium Chloride 1,000 ML IVC SCH ×2 (05:59→18:02)
[2016-06-15] MEDS: *HR* Enoxaparin 40 MG/0.4 ML SYRINGE SQ SCH (06:00)
[2016-06-15] MEDS: Metoprolol XL (24 HR) Succ 25 MG TAB.ER.24H PO SCH ×2 (08:12→20:09)
[2016-06-15] MEDS: Pantoprazole 40 MG VIAL IVP SCH (08:12)
[2016-06-15 08:21] LABS: BUN/Creatinine Ratio 17 (6-26); Blood Urea Nitrogen 11 mg/dL (7-20); Calcium 8.5 mg/dL (8.6-10.8); Carbon Dioxide 16 mEq/L (19-29); Chloride 106 mEq/L (98-109); Glucose 128 mg/dL (70-99); Lipase 58 Units/L (8-78); Osmolality,Calculated 285 (280-300); Sodium 137 mEq/L (136-145); eGFR For African Americans > 60 (> 60); eGFR For Non-African Americans > 60 (> 60)
--- NOTE | 2016-06-15 11:36 | Internal Med Progress Note ---
Date of Encounter: 06/15/16 Time of Encounter: 09:30 - Assessment and plan (1) Pancreatitis Current Visit: Yes Status: Acute Assessment and plan: Patient's pain continues to improve. Lipase now normal; will initiate full liquid diet and slowly advance over the next day as she tolerates. Urinalysis negative. Leukocytosis resolved. No indication for antibiotics at this time. We will continue IV fluids, pain control, antiemetics and reevaluate tomorrow. Possible discharge tomorrow pending clinical outcomes. ITS Impressions Abdomen/Pelvis CT 06/13/16 09:51 IMPRESSION: 1. 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 Necrosis cannot be evaluated for given lack of intravenous contrast. 2. No drainable fluid collection or free air. D/ / 06/13/2016 11:16:22 Jazzy Vazquez MD / rusty Interpreting Provider: Jazzy Vazquez MD Chest X-Ray 06/13/16 18:46 IMPRESSION: No acute cardiopulmonary process. D/ / Sandeep Vazquez MD / Sandeep Vazquez MD Interpreting Provider: Sandeep Vzaquez MD Qualifiers: Chronicity: acute Pancreatitis type: unspecified pancreatitis type Acute pancreatitis complication: unspecified Qualified Code(s): K85.90 - Acute pancreatitis without necrosis or infection, unspecified (2) Leukocytosis Current Visit: Yes Status: Resolved Qualifiers: Leukocytosis type: unspecified Qualified Code(s): D72.829 - Elevated white blood cell count, unspecified (3) Type 2 diabetes mellitus Current Visit: Yes Status: Chronic Assessment and plan: Relatively well controlled at home with an A1c of 7.5%. Continue sliding scale while admitted. Qualifiers: Diabetes mellitus complication status: with neurologic complications Diabetes mellitus complication detail: with polyneuropathy Diabetes mellitus nursing home insulin use: without nursing home use Qualified Code(s): E11.42 - Type 2 diabetes mellitus with diabetic polyneuropathy (4) Hypertension Current Visit: Yes Status: Chronic Assessment and plan: Controlled. At home, she is on Toprol-XL 25 mg twice a day, will continue and monitor Qualifiers: Hypertension type: essential hypertension Qualified Code(s): I10 - Essential (primary) hypertension (5) DVT prophylaxis Current Visit: Yes Status: Acute Assessment and plan: Subcutaneous Lovenox - Subjective Interval history: Patient seen and examined. On examination, patient sleeps supine in bed. She woke up easily to voice and was alert and oriented 3. She complained of very mild pain to the left side of her abdomen with palpation and movement but otherwise denied pain. She denied any nausea or vomiting. She stated she was hungry and denied further concerns. - Constitutional Vitals: Temp Pulse Resp BP Pulse Ox 97.7 F 67 16 139/68 98 06/15/16 11:22 06/15/16 11:22 06/15/16 11:22 06/15/16 11:22 06/15/16 11:22 General appearance: Present: A&O X 3, pleasant, no acute distress, answers questions appropriately - Head Head exam: Present: atraumatic, normocephalic - Eye Eye exam: Present: PERRL, conjuntiva pink, sclera anicteric Pupils: Present: PERRL - Neck Neck exam general surgery: Present: supple, trachea midline. Absent: lymphadenopathy - Respiratory Respiratory exam: Present: CTAB. Absent: accessory muscle use, rales, respiratory distress, rhonchi, wheezes - Cardiovascular Cardiovascular exam: Present: RRR, +S1, +S2. Absent: diastolic murmur, gallop, rubs, systolic murmur - GI/Abdominal GI/Abdominal exam: Present: normal bowel sounds, soft, tenderness, no peritoneal signs. Absent: distended - Extremities Exam Extremities exam: Present: warm, radial pulses palpable and symetrical. Absent : calf tenderness, cyanotic, pedal edema - Neurological Exam Neurological exam: Present: alert, CN II-XII intact, oriented X3, no focal deficits, strengths equal and symetr throughout. Absent: pronater drift, facial droop, speech deficit - Skin Skin exam: Present: dry, intact, pallor, warm Internal Medicine: Result - Labs CBC & Chem 7: 06/14/16 04:37 06/15/16 06:23 Labs: BMP 06/15/16 06:23 Sodium 137 Potassium 4.0 Chloride 106 Carbon Dioxide 16 L BUN 11 Creatinine 0.66 Glucose 128 H Calcium 8.5 L - VTE Documentation of Mechanical Device: Graduated compression elastic hosiery Consult Discharge Plan - Plan Referrals: Gokul Howard MD [Primary Care Provider] -
[2016-06-16] MEDS: 0.9 % Sodium Chloride 1,000 ML IVC SCH ×2 (03:56→12:17)
[2016-06-16] MEDS: *HR* Enoxaparin 40 MG/0.4 ML SYRINGE SQ SCH (05:53)
[2016-06-16] MEDS: Insulin LISPRO 300 UNITS/3 ML VIAL SQ SCH ×2 (06:34→12:18)
[2016-06-16] MEDS ORDERED: Metoprolol XL (24 HR) Succ 25 MG TAB.ER.24H PO SCH (08:04)
[2016-06-16 14:48] VITALS: BP 167/71
--- NOTE | 2016-06-16 14:59 | Discharge Summary ---
Date of Encounter: 06/16/16 Time of Encounter: 09:30 - Discharge Diagnosis (1) Pancreatitis Priority: Primary Status: Acute Comments: Patient was able to tolerate a regular diet prior to discharge. Follow-up outpatient. Qualifiers: Chronicity: acute Pancreatitis type: unspecified pancreatitis type Acute pancreatitis complication: unspecified Qualified Code(s): K85.90 - Acute pancreatitis without necrosis or infection, unspecified (2) Leukocytosis Priority: Primary Status: Resolved (3) Type 2 diabetes mellitus Priority: Secondary Status: Chronic Comments: Relatively well controlled at home with an A1c of 7.5%. Follow-up outpatient Qualifiers: Diabetes mellitus complication status: with neurologic complications Diabetes mellitus complication detail: with polyneuropathy Diabetes mellitus extermination supervisor insulin use: without extermination supervisor use Qualified Code(s): E11.42 - Type 2 diabetes mellitus with diabetic polyneuropathy (4) Hypertension Priority: Secondary Status: Chronic Comments: Uncontrolled at times. She was hypertensive overnight while admitted, and was given IV Hydralazine then had an adverse reaction of mild tachycardia and feelings of palpitations- HR 100. Quickly resolved. Her home metoprolol was doubled- recommend daily BP checks at home and close outpatient follow-up Qualifiers: Hypertension type: essential hypertension Qualified Code(s): I10 - Essential (primary) hypertension (5) DVT prophylaxis Priority: Primary Status: Acute Comments: Subcutaneous Lovenox while admitted - Discharge Medications Prescriptions: Ondansetron ODT [Zofran ODT] 4 mg SL Q6HR PRN #12 tab.rapdis PRN Reason: Nausea And Vomiting HYDROcodone/Acet 5/325 mg [[place] 5-325 mg] 1 tab PO Q6H PRN #25 tab PRN Reason: Pain Metoprolol XL (24 HR) Succ [Toprol Xl] 50 mg PO BID #60 tab.er.24h Home Medications: Aspirin/Calcium Carbonate/Mag [Aspirin Buffered 325 mg Tab] 325 mg PO DAILY [History] Biotrust Ic-5 2 cap PO DAILY 06/13/16 [History] LORazepam [Ativan] 0.5 mg PO BID PRN 06/13/16 [History] Metformin HCl [Metformin HCl ER] 1,000 mg PO DAILY 06/13/16 [History] Pantoprazole Sodium [Protonix] 40 mg PO DAILY 06/13/16 [History] HYDROcodone/Acet 5/325 mg [[place] 5-325 mg] 1 tab PO Q6H PRN #25 tab 06/16/16 [Rx ] Metoprolol XL (24 HR) Succ [Toprol Xl] 50 mg PO BID #60 tab.er.24h 06/16/16 [Rx] Ondansetron ODT [Zofran ODT] 4 mg SL Q6HR PRN #12 tab.rapdis 06/16/16 [Rx] Allergies/Adverse Reactions: Allergies JAIRON Inhibitors Allergy (Verified 06/13/16 09:14) Anaphylaxis clindamycin Allergy (Verified 06/13/16 09:14) Rash Penicillins Allergy (Verified 06/13/16 09:14) Rash ivp dye Allergy (Uncoded 06/13/16 11:42) See Comments Patient unsure what her reaction was- Date of admission: 06/13/16 12:58 Primary care physician: Gokul Howard MD Discharging clinician: Juany Loyola Anticipated date of discharge: 06/16/16 - Patient Status Disposition: Home, Self-Care Condition: Good Functional capacity at discharge: independent ambulation Overall status at discharge: patient is progressing back to baseline - Discharge Instructions Instructions: Pancreatitis (DC), Pancreatitis (GEN) Follow Up With: Gokul Howard MD [Primary Care Provider] - 06/23/16 9:45 am Additional Instructions: Follow-up with primary care provider as scheduled, check blood pressure daily and keep a log - Diet and Activity Activity: increase activity as tolerated Diet: diabetic diet, low salt diet Hospital course: Ms. Martin is a 75 year old female with past medical history of hypertension, diabetes, history of pancreatic mass status post Whipple in 2007, recurrent pancreatitis. Patient presented to the emergency department chief complaint abdominal pain and vomiting. Patient stating she woke up on the morning of presentation with severe abdominal pain and vomited 3 times. Patient complains of generalized pain in her abdomen worse on her left side and relieved with pain medication in the emergency department. Patient stating for the 3 days prior to presentation, she had mild nausea and decreased by mouth intake as well as diarrhea. Patient also endorsed mild sore throat and a mild headache. Abdominal CT in the emergency department consistent with acute pancreatitis. Initial lipase 1414. Strep throat swab of her throat was negative. Flu swab negative. Chest x-ray negative. Urinalysis negative. Patient was admitted to the hospitalist service for further evaluation and management. She was admitted and observed over the course of 3 days. Initially, she was given a clear liquid diet which was slowly advanced over the course of 3 days. Her lipase had returned to normal. Her leukocytosis resolved. Blood cultures were negative. Patient was able to tolerate a regular diet prior to discharge. Patient was noted to be hypertensive at times even when her pain was controlled to her metoprolol dosage was increased. She was discharged home in stable condition with close outpatient follow-up recommended. ITS Impressions Abdomen/Pelvis CT 06/13/16 09:51 IMPRESSION: 1. 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 Necrosis cannot be evaluated for given lack of intravenous contrast. 2. No drainable fluid collection or free air. D/ / 06/13/2016 11:16:22 Jazzy Vazquez MD / rusty Interpreting Provider: Jazzy Vazquez MD Chest X-Ray 06/13/16 18:46 IMPRESSION: No acute cardiopulmonary process. D/ / Sandeep Vazquez MD / Sandeep Vazquez MD Interpreting Provider: Sandeep Vazquez MD - Time Spent with Patient Total time spent providing and/or coordinating discharge services: - Constitutional Vitals: Temp Pulse Resp BP Pulse Ox 98.6 F 74 16 167/71 96 06/16/16 14:45 06/16/16 14:45 06/16/16 14:45 06/16/16 14:45 06/16/16 14:45 General appearance: Present: A&O X 3, pleasant, no acute distress, answers questions appropriately - Head Head exam: Present: atraumatic, normocephalic - Eye Eye exam: Present: PERRL, conjuntiva pink, sclera anicteric Pupils: Present: PERRL - Neck Neck exam general surgery: Present: supple, trachea midline. Absent: lymphadenopathy - Respiratory Respiratory exam: Present: CTAB. Absent: accessory muscle use, rales, respiratory distress, rhonchi, wheezes - Cardiovascular Cardiovascular exam: Present: RRR, +S1, +S2. Absent: diastolic murmur, gallop, rubs, systolic murmur - GI/Abdominal GI/Abdominal exam: Present: normal bowel sounds, soft, tenderness (left side, very mild), no peritoneal signs. Absent: distended - Extremities Exam Extremities exam: Present: warm, radial pulses palpable and symetrical. Absent : calf tenderness, cyanotic, pedal edema - Neurological Exam Neurological exam: Present: alert, CN II-XII intact, normal gait, oriented X3, no focal deficits, strengths equal and symetr throughout. Absent: pronater drift, facial droop, speech deficit - Skin Skin exam: Present: dry, intact, normal color, warm - VTE Documentation of Mechanical Device: Graduated compression elastic hosiery
== END 2016-06-16 18:57 | disposition home or self-care (01) | DRG 440 ==
LOC: 3BNU 09:10 → EMEROO 09:10 → 3BNU 12:32
PROVIDERS: ADMIT Hospitalist; ATTEND Nurse Practitioner Family

== ENCOUNTER 2016-09-17 11:33 | Observation (INO) ==
--- NOTE | 2016-09-17 13:06 | Emergency Department Note ---
Disposition Clinical Impression: Acute electrocardiogram changes Hypertension Qualifiers: Hypertension type: unspecified Qualified Code(s): I10 - Essential (primary) hypertension Disposition: Admitted As Inpatient Condition: Undetermined Referrals: Gokul Howard MD [Primary Care Provider] - Forms: ED Satisfaction Letter Time of Disposition: 14:46 General Adult HPI - General Chief complaint: ED Shortness of Breath/Dyspnea Stated complaint: High B/P,GO Time Seen by Provider: 09/17/16 12:56 Source: patient Mode of arrival: ambulatory Limitations: no limitations Nursing Notes Reviewed: Yes Vital Signs Reviewed: Yes - History of Present Illness HPI Narrative: 75-year-old female with history of multiple MIs in the past, hypertension, hyperlipidemia, type 2 diabetes, arrives [facility] emergency department complaining of hypertension with a blood pressure in the 200s systolic as well as exertional dyspnea. The patient states that this started one day ago and has been bothering her since then. The patient denies any chest pain at this time. Patient does have some mild nonspecific ST-T changes noted on EKG but again denies any chest pain at this time. Patient has no complaints. Current systolic blood pressure is 170. Onset (ago): day(s) (1) Pain Scale: 0 Improves with: nothing Worsens with: nothing Associated symptoms: Reports: shortness of breath (on exertion) Treatments Prior to Arrival: none - Related Data Home Medications Medication Instructions Recorded Confirmed Aspirin/Calcium Carbonate/Mag 325 mg PO DAILY 06/13/16 06/13/16 [Aspirin Buffered 325 mg Tab] Biotrust Ic-5 2 cap PO DAILY 06/13/16 06/13/16 LORazepam [Ativan] 0.5 mg PO BID PRN 06/13/16 06/13/16 Metformin HCl [Metformin HCl ER] 1,000 mg PO DAILY 06/13/16 06/13/16 Pantoprazole Sodium [Protonix] 40 mg PO DAILY 06/13/16 06/13/16 Previous Rx's Medication Instructions Recorded HYDROcodone/Acet 5/325 mg [Elsie 1 tab PO Q6H PRN #25 tab 06/16/16 5-325 mg] Metoprolol XL (24 HR) Succ [Toprol 50 mg PO BID #60 tab.er.24h 06/16/16 Xl] Ondansetron ODT [Zofran ODT] 4 mg SL Q6HR PRN #12 tab.rapdis 06/16/16 Allergies Allergy/AdvReac Type Severity Reaction Status Date / Time JAIRON Inhibitors Allergy Anaphylaxis Verified 09/17/16 11:55 clindamycin Allergy Rash Verified 09/17/16 11:55 Penicillins Allergy Rash Verified 09/17/16 11:55 ivp dye Allergy See Uncoded 09/17/16 11:55 Comments All systems ED: reviewed and negative except as stated. Constitutional: Denies: fever, chills, weakness, weight change Eyes: Denies: eye pain, eye discharge, vision change ENT ED: Denies: ear pain, throat pain, dental pain, hearing loss, epistaxis, congestion, dysphagia Cardiovascular: Reports: dyspnea on exertion. Denies: chest pain, palpitations , edema, syncope Respiratory: Denies: cough, dyspnea, wheezes, hemoptysis, stridor Gastrointestinal: Denies: abdominal pain, nausea, vomiting, diarrhea, constipation, hematemesis, melena, hematochezia Genitourinary: Denies: dysuria, frequency, hematuria, discharge Musculoskeletal: Denies: back pain, neck pain, arthralgia, myalgia Integumentary: Denies: rash, abrasion, lesions Neurological: Denies: headache, weakness, numbness, paresthesias, confusion, abnormal gait, vertigo Past Medical History - Past Medical History Attestation: Yes The following information was validated with the patient. Source: patient Medical history: Reports: diabetes, hypertension, myocardial infarction Surgical history: Reports: appendectomy, cholecystectomy Psychiatric history: Reports: anxiety FORKLIFT DRIVER history: Reports: no FORKLIFT DRIVER history, bilateral tubal ligation - Social History Smoking Status: Never smoker Smokeless Tobacco Status: No Alcohol use: Reports: none Drug use: Reports: none Physical Exam - General Limitations: no limitations General appearance: alert, in no apparent distress - Head Head exam: atraumatic, normocephalic, normal inspection - Eye Eye exam: Present: normal appearance, PERRL, EOMI - ENT ENT exam: normal exam, normal oropharynx, mucous membranes moist - Neck Neck exam: Present: normal inspection, full ROM, trachea midline - Chest Chest inspection: Present: normal inspection, symmetric chest wall rise - Respiratory Respiratory exam: Present: normal lung sounds bilaterally - Cardiovascular Cardiovascular exam: Present: regular rate, normal rhythm, normal heart sounds - Abdominal Exam Abdominal exam: Present: soft, Non-Tender. Absent: tenderness, distention, guarding, rebound, rigidity - Extremities Exam Extremities exam: Present: normal inspection, full ROM. Absent: tenderness, pedal edema - Neurological Exam Neurological exam: Present: alert, oriented X3 - Skin Skin exam: Present: warm, dry, intact, normal color Course Vital Signs Temperature 98.5 F 09/17/16 11:55 Pulse Rate 68 09/17/16 11:55 Respiratory Rate 20 09/17/16 11:55 Blood Pressure 207/93 09/17/16 11:55 O2 Sat by Pulse Oximetry 98 09/17/16 11:55 Temperature 98.5 F 09/17/16 11:55 Pulse Rate 67 09/17/16 14:36 Respiratory Rate 18 09/17/16 14:36 Blood Pressure 166/75 09/17/16 14:36 O2 Sat by Pulse Oximetry 97 09/17/16 14:36 Oxygen Delivery Oxygen Delivery Room Air Medical Decision Making - MDM Narrative Medical decision making narrative: Patient's blood pressure demonstrates a systolic in the 170s. The patient's EKG demonstrates nonspecific ST changes from EKG back in May. The patient's lab work demonstrates no acute findings. Given the patient's symptoms combined with her systolic blood pressure changes on her EKG, we will admit the patient to the hospital for work hypertensive emergency as well as ACS rule out. Patient made aware plan and agrees. We will administer IV labetalol here in the emergency department. Accepted by Dr. Canales. - Medical Records Medical records reviewed: Yes I reviewed the patient's medical records. - Lab Data Lab results reviewed: Yes I reviewed the patient's lab results. Result diagrams: 09/17/16 13:55 09/17/16 13:55 Lab Results 09/17/16 09/17/16 09/17/16 Range/Units 13:55 13:55 13:55 WBC 6.3 (4.3-11.1) K/mcL RBC 4.46 (3.82-4.97) M/mcL Hgb 12.4 (11.5-15.4) g/dL Hct 37.9 (35.3-44.9) % MCV 85.0 (83.0-100.0) fL MCH 27.8 L (28.0-33.3) pg MCHC 32.7 (31.6-35.5) g/dL RDW 13.6 (11.5-14.5) % Plt Count 273 (140-400) K/mcL MPV 9.8 (9.4-12.4) fL Immature Gran % 0.3 (0-4) % Seg Neutrophils % 60.9 % Lymphocytes % 27.8 % Monocytes % 8.3 % Eosinophils % 2.2 % Basophils % 0.5 % Neutrophils # 3.8 (1.6-8.9) K/mcL Lymphocytes # 1.8 (0.6-4.6) K/mcL Monocytes # 0.5 (0.0-1.3) K/mcL Eosinophils # 0.1 (0.0-0.6) K/mcL Basophils # 0.0 (0.0-0.2) K/mcL Immature Plt Fraction 3.0 (1.1-6.1) % Sodium 138 (136-145) mEq/L Potassium 4.4 (3.5-4.5) mEq/L Chloride 103 (98-109) mEq/L Carbon Dioxide 29 (19-29) mEq/L BUN 9 (7-20) mg/dL Creatinine 0.75 (0.57-1.11) mg/dL Est GFR ( Amer) > 60 (> 60) Est GFR (Non-Af Amer) > 60 (> 60) BUN/Creatinine Ratio 12 (6-26) Glucose 133 H (70-99) mg/dL Calculated Osmolality 287 (280-300) Calcium 10.1 (8.6-10.8) mg/dL Troponin I 0.00 (0-0.03) ng/mL - Radiology Data Radiology results reviewed: Yes I reviewed the patient's radiology results. - EKG Data EKG #1 EKG attestation: Yes I reviewed and interpreted this EKG. EKG results narrative: Heart rate 71 bpm. VA interval 201 ms. QTc 422 ms. Normal axis. Normal sinus rhythm. No ST elevation or depression noted. Nonspecific ST changes noted from EKG from 06/13/2016. Attestation Statement - Attestation Attestation: I examined this patient and my medical decision-making was reviewed with the Resident Physician. I agree with the documented findings, disposition and treatment plan as described except to the extent set forth below. [id number] time provided The patient has a known history of hypertension for the past 25 years. She is worried about her blood pressure and mild exertional fatigue. No chest pain. She appears in no acute distress on exam
[2016-09-17 14:02] LABS: Basophils % 0.5 %; Eosinophils # 0.1 K/mcL (0.0-0.6); Eosinophils % 2.2 %; Hematocrit 37.9 % (35.3-44.9); Hemoglobin 12.4 g/dL (11.5-15.4); Immature Granulocytes % 0.3 % (0-4); Lymphocytes # 1.8 K/mcL (0.6-4.6); Lymphocytes % 27.8 %; Mean Corpuscular HGB Conc 32.7 g/dL (31.6-35.5); Mean Corpuscular Hemoglobin 27.8 pg (28.0-33.3); Mean Platelet Volume 9.8 fL (9.4-12.4); Monocytes # 0.5 K/mcL (0.0-1.3); Monocytes % 8.3 %; Neutrophils # 3.8 K/mcL (1.6-8.9); Platelet Count 273 K/mcL (140-400); Red Blood Count 4.46 M/mcL (3.82-4.97); Red Cell Distribution Width 13.6 % (11.5-14.5); Segmented Neutrophils % 60.9 %
[2016-09-17 14:14] LABS: BUN/Creatinine Ratio 12 (6-26); Blood Urea Nitrogen 9 mg/dL (7-20); Calcium 10.1 mg/dL (8.6-10.8); Carbon Dioxide 29 mEq/L (19-29); Chloride 103 mEq/L (98-109); Glucose 133 mg/dL (70-99); Osmolality,Calculated 287 (280-300); Potassium 4.4 mEq/L (3.5-4.5); Sodium 138 mEq/L (136-145); eGFR For African Americans > 60 (> 60); eGFR For Non-African Americans > 60 (> 60)
[2016-09-17] MEDS ORDERED: *HR* Labetalol 20 MG/4 ML SYRINGE IVP ONE (14:28)
--- NOTE | 2016-09-17 15:06 | Event Note ---
Date of Encounter: 09/17/16 Time of Encounter: 15:04 1. Hypertensive urgency Stop Toprol, start labetalol 100 mg oral twice a day, hydrochlorothiazide 12.5 g daily and hydralazine oral, also hydralazine IV as needed during her hospitalization Check an echocardiogram 2. Diabetes type 2 not insulin-dependent, may use some insulin sliding scale during her hospitalization 3. Hyperlipidemia, stable 4. History of diastolic dysfunction 5. EKG shows T-wave flattening in the lateral leads, nonspecific. Await final report of echocardiogram Omeprazole for GI prophylaxis and subcutaneous heparin for DVT prophylaxis. The patient will be admitted for observation. Full code. Time spent on this admission 40 minutes. High risk due to hypertensive urgency. H&P to be written by CHER Barajas
[2016-09-17] MEDS ORDERED: Naloxone 0.4 MG/ML INJ IVP PRN (15:37)
[2016-09-17] MEDS ORDERED: Acetaminophen 325 MG TABLET PO PRN (15:37)
[2016-09-17] MEDS ORDERED: *HR* LORazepam 0.5 MG TABLET PO PRN (15:40)
[2016-09-17] MEDS ORDERED: Dextrose Gel 15 GM PO PRN ×2 (15:42)
[2016-09-17] MEDS ORDERED: D5% in Water 1,000 ML IVC PRN (15:42)
[2016-09-17] MEDS ORDERED: *HR* Dextrose 50 % in Water (Syg) 50 ML SYRINGE IVP PRN (15:42)
--- NOTE | 2016-09-17 15:46 | Internal Med History&Physical ---
<Corey Culver H - Last Filed: 09/17/16 18:41> Date of Encounter: 09/17/16 Internal Medicine - H&P: HPI History of present illness: Ms. Martin is a 75 year old female Internal Medicine - H&P: Meds LORazepam [Ativan] 0.5 mg PO BID PRN 06/13/16 [History] Pantoprazole Sodium [Protonix] 40 mg PO DAILY 06/13/16 [History] Metoprolol XL (24 HR) Succ [Toprol XL] 25 mg PO DAILY 09/17/16 [History] Allergies JAIRON Inhibitors Allergy (Verified 09/17/16 15:02) Anaphylaxis clindamycin Adverse Reaction (Verified 09/17/16 15:02) Rash Penicillins Adverse Reaction (Verified 09/17/16 15:02) Rash ivp dye Allergy (Uncoded 09/17/16 11:55) See Comments Patient unsure what her reaction was- All Systems PM: A 10-system review of systems was performed and is negative for pertinent findings except as documented above in the HPI. - Constitutional Vitals: Temp Pulse Resp BP Pulse Ox 98.3 F 67 16 148/71 98 09/17/16 16:26 09/17/16 16:26 09/17/16 16:26 09/17/16 16:26 09/17/16 16:26 Internal Med - H&P Results - Labs CBC & Chem 7: 09/17/16 13:55 09/17/16 13:55 - Attending Attestation 1. Hypertensive urgency Stop Toprol, start labetalol 100 mg oral twice a day, hydrochlorothiazide 12.5 g daily and hydralazine oral, also hydralazine IV as needed during her hospitalization Check an echocardiogram 2. Diabetes type 2 not insulin-dependent, may use some insulin sliding scale during her hospitalization 3. Hyperlipidemia, stable 4. History of diastolic dysfunction 5. EKG shows T-wave flattening in the lateral leads, nonspecific. Await final report of echocardiogram Omeprazole for GI prophylaxis and subcutaneous heparin for DVT prophylaxis. The patient will be admitted for observation. Full code. Time spent on this admission 40 minutes. High risk due to hypertensive urgency. For this encounter, I have reviewed the SHIPPING AGENT or PA documentation, treatment plan, and medical decision making; and I have had face to face time with this patient. <Latesha Barajas - Last Filed: 09/17/16 19:06> Date of Encounter: 09/17/16 Time of Encounter: 15:44 Assessment and Plan (1) Hypertensive urgency Current visit: Yes Status: Acute Patient presents with concerns of elevated blood pressure. Blood pressure on arrival was 207/93. She also reports new dyspnea on exertion, denies chest pain or headache. EKG showed non-specific t wave flattening. Patient was given 10mg of Labetalol IVP in ED and blood pressure came down to 166/75. Stop Toprol. Patient allergic to ACEIs. Patient should be on 3 medications to control her blood pressure. Start labetalol 100mg BID Start HCTZ 12.5mg daily Start hydralazine 10mg Q6hr. Hydralazine IVP PRN. 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 serial troponins echocardiogram. (2) Acute electrocardiogram changes Current visit: Yes Status: Acute EKG showed nonspecific flattening of t-waves. Patient denies any chest pain. Initial troponin 0.00. 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 echocardiogram (3) Type 2 diabetes mellitus Current visit: Yes Status: Chronic Patient reports she is not taking her metformin, but watches what she eats. Last A1c in May showed moderate control at 7.5% Check blood sugars ACHS sliding scale correction dose ACHS hypoglycemic protocol. Qualifiers: Diabetes mellitus complication status: with neurologic complications Diabetes mellitus complication detail: with polyneuropathy Diabetes mellitus long-term insulin use: without long-term use Qualified Code(s): E11.42 - Type 2 diabetes mellitus with diabetic polyneuropathy (4) DVT prophylaxis Current visit: Yes Status: Acute anti-embolic stockings. Lovenox SQ daily. Internal Medicine - H&P: HPI Chief complaint: high blood pressure Admitted From: Emergency Dept Plans for Post Hospital Care: Home History of present illness: Ms. Martin is a 75 year old female with hypertension, type 2 diabetes, history of [place], hyperlipidemia, history of pancreatic mass status post Whipple procedure in 2008 presented to the emergency department today with complaints of elevated blood pressure. Patient reports that she checked her blood pressure yesterday and it was 200 systolic, she rechecked it today and again it was over 200 systolic, so she presented to the emergency department. She reports that she has noticed this morning some shortness of breath on exertion, which is new for her. She denies any lightheadedness, dizziness, headache, chest pain, palpitations, nausea, vomiting, abdominal pain, or diarrhea. She denies any fever, chills or sweats. Evaluation in the emergency department included an EKG which showed mild nonspecific ST-T changes, troponin was negative at 0.00. Chest x-ray showed no evidence of acute cardiopulmonary disease. On exam, patient alert and oriented, in no acute distress. Heart regular rate and rhythm , lungs are clear bilaterally to auscultation. Abdomen soft nontender. Peripheral pulses intact no peripheral edema. Past Med Surg Social Fam HX - Past Medical History Medical history: diabetes, hypertension, myocardial infarction Psychiatric history: anxiety - Past Surgical History Surgical History: appendectomy, cholecystectomy, other (Whipple procedure 2008) - Social History Smoking Status: Former smoker (25 pack year history) Smokeless Tobacco Status: No Alcohol use: none Drug use: none - Family History Mother Living Status: Hx Family Cardiac Disorders: Yes Hx Family Cancer: Yes Father Living Status: Hx Family Cancer: Yes All Systems PM: A 10-system review of systems was performed and is negative for pertinent findings except as documented above in the HPI. - Constitutional Constitutional: no chills, no fever(s), no night sweats - EENT Eyes: no change in vision, no discharge, no pain, no photophobia Ears: no ear discharge, no ear pain, no tinnitus Nose, mouth and throat: no dysphagia, no nasal discharge, no neck pain, no sore throat - Cardiovascular Cardiovascular ROS IM: dyspnea on exertion, no chest pain, no diaphoresis, no dyspnea, no lightheadedness, no palpitations, no syncope - Respiratory Respiratory: dyspnea on exertion, no cough, no dyspnea, no wheezing, no excessive phlegm production - Gastrointestinal Gastrointestinal: no abdominal pain, no diarrhea, no hematemesis, no hematochezia, no melena, no nausea, no vomiting - Genitourinary Genitourinary: no change in urinary stream, no dysuria, no flank pain, no hematuria - Musculoskeletal Musculoskeletal ROS IM: no numbness, no tingling - Integumentary Integumentary IM: no rash, no unusual bruising - Neurological Neurological ROS: no confusion, no convulsions, no focal weakness, no numbness, no tingling, no tremor(s) - Hematologic/Lymphatic Hematologic/Lymphatic: no easy bruising - Constitutional Vitals: Temp Pulse Resp BP Pulse Ox 98.5 F 67 18 166/97 97 09/17/16 11:55 09/17/16 14:36 09/17/16 15:19 09/17/16 15:19 09/17/16 14:36 General appearance: Present: A&O X 3, pleasant, no acute distress - Head Head exam: Present: atraumatic, normocephalic - Eye Eye exam: Present: PERRL, conjuntiva pink, sclera anicteric Pupils: Present: PERRL - Neck Neck exam general surgery: Present: supple, trachea midline. Absent: lymphadenopathy - Respiratory Respiratory exam: Present: CTAB. Absent: accessory muscle use, rales, rhonchi, wheezes - Cardiovascular Cardiovascular exam: Present: RRR, +S1, +S2. Absent: diastolic murmur, gallop, rubs, systolic murmur - GI/Abdominal GI/Abdominal exam: Present: normal bowel sounds, soft, no peritoneal signs. Absent: distended, tenderness - Extremities Exam Extremities exam: Present: warm, radial pulses palpable and symetrical. Absent : calf tenderness, cyanotic, pedal edema - Neurological Exam Neurological exam: Present: CN II-XII intact, oriented X3, no focal deficits. Absent: pronater drift, facial droop, speech deficit - Skin Skin exam: Present: dry, intact Internal Med - H&P Results - Labs CBC & Chem 7: 09/17/16 13:55 09/17/16 13:55 Labs: All Lab Results (24 Hours) 09/17/16 09/17/16 09/17/16 Range/Units 13:55 13:55 13:55 WBC 6.3 (4.3-11.1) K/mcL RBC 4.46 (3.82-4.97) M/mcL Hgb 12.4 (11.5-15.4) g/dL Hct 37.9 (35.3-44.9) % MCV 85.0 (83.0-100.0) fL MCH 27.8 L (28.0-33.3) pg MCHC 32.7 (31.6-35.5) g/dL RDW 13.6 (11.5-14.5) % Plt Count 273 (140-400) K/mcL MPV 9.8 (9.4-12.4) fL Immature Gran % 0.3 (0-4) % Seg Neutrophils % 60.9 % Lymphocytes % 27.8 % Monocytes % 8.3 % Eosinophils % 2.2 % Basophils % 0.5 % Neutrophils # 3.8 (1.6-8.9) K/mcL Lymphocytes # 1.8 (0.6-4.6) K/mcL Monocytes # 0.5 (0.0-1.3) K/mcL Eosinophils # 0.1 (0.0-0.6) K/mcL Basophils # 0.0 (0.0-0.2) K/mcL Immature Plt Fraction 3.0 (1.1-6.1) % Sodium 138 (136-145) mEq/L Potassium 4.4 (3.5-4.5) mEq/L Chloride 103 (98-109) mEq/L Carbon Dioxide 29 (19-29) mEq/L BUN 9 (7-20) mg/dL Creatinine 0.75 (0.57-1.11) mg/dL Est GFR ( Amer) > 60 (> 60) Est GFR (Non-Af Amer) > 60 (> 60) BUN/Creatinine Ratio 12 (6-26) Glucose 133 H (70-99) mg/dL Calculated Osmolality 287 (280-300) Calcium 10.1 (8.6-10.8) mg/dL Troponin I 0.00 (0-0.03) ng/mL - Diagnostic Studies Chest x-ray Additional comments: Chest X-Ray 09/17/16 11:59 IMPRESSION: Negative chest x-ray. No evidence of acute cardiopulmonary disease. D/ / Heath Comer MD / Heath Comer MD Interpreting Provider: Heath Comer MD
[2016-09-17] MEDS: Insulin LISPRO 300 UNITS/3 ML VIAL SQ SCH (18:32)
[2016-09-17] MEDS: hydrALAZINE 10 MG TABLET PO SCH (18:35)
[2016-09-17] MEDS: hydroCHLOROthiazide 25 MG TABLET PO SCH (19:06)
[2016-09-17] MEDS ORDERED: Insulin LISPRO 300 UNITS/3 ML VIAL SQ SCH (21:00)
[2016-09-18] MEDS: hydrALAZINE 10 MG TABLET PO SCH ×3 (00:42→12:16)
[2016-09-18 02:05] LABS: Basophils # 0.1 K/mcL (0.0-0.2); Basophils % 0.8 %; Eosinophils # 0.1 K/mcL (0.0-0.6); Eosinophils % 1.8 %; Hemoglobin 12.2 g/dL (11.5-15.4); Immature Granulocytes % 0.4 % (0-4); Lymphocytes # 1.8 K/mcL (0.6-4.6); Lymphocytes % 25.1 %; Mean Corpuscular Hemoglobin 27.7 pg (28.0-33.3); Mean Corpuscular Volume 83.9 fL (83.0-100.0); Mean Platelet Volume 9.7 fL (9.4-12.4); Monocytes # 0.9 K/mcL (0.0-1.3); Monocytes % 11.7 %; Neutrophils # 4.4 K/mcL (1.6-8.9); Platelet Count 239 K/mcL (140-400); Red Blood Count 4.41 M/mcL (3.82-4.97); Red Cell Distribution Width 13.7 % (11.5-14.5); Segmented Neutrophils % 60.2 %
[2016-09-18 02:32] LABS: BUN/Creatinine Ratio 13 (6-26); Blood Urea Nitrogen 10 mg/dL (7-20); Calcium 9.6 mg/dL (8.6-10.8); Carbon Dioxide 28 mEq/L (19-29); Chloride 104 mEq/L (98-109); Chol/HDL Ratio 4.3 (0-4.9); Cholesterol 213 mg/dL (< 200); Glucose 165 mg/dL (70-99); HDL Cholesterol 49 mg/dL (40-59); LDL Cholesterol,Calculated 133 mg/dL (0-99); Osmolality,Calculated 293 (280-300); Potassium 3.8 mEq/L (3.5-4.5); Sodium 140 mEq/L (136-145); Triglycerides 156 mg/dL (< 150); eGFR For African Americans > 60 (> 60); eGFR For Non-African Americans > 60 (> 60)
[2016-09-18] MEDS ORDERED: *HR* Enoxaparin 40 MG/0.4 ML SYRINGE SQ SCH (07:00)
[2016-09-18] MEDS: hydroCHLOROthiazide 25 MG TABLET PO SCH (08:40)
[2016-09-18] MEDS: Insulin LISPRO 300 UNITS/3 ML VIAL SQ SCH ×2 (08:41→12:42)
--- NOTE | 2016-09-18 13:57 | Electrocardiograph Report ---
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
[2016-09-18 15:31] VITALS: BP 161/75
--- NOTE | 2016-09-18 15:34 | Discharge Summary ---
Date of Encounter: 09/18/16 Time of Encounter: 14:00 - Discharge Diagnosis (1) Hypertensive urgency Priority: Primary Status: Resolved (2) Hypertension Priority: Secondary Status: Chronic Comments: Was on Toprol-XL at home, attempted to change her to labetalol twice a day but the patient refused, will change her to Toprol twice a day. Patient was okay with adding HCTZ and clonidine. Blood pressure improved at time of discharge. Qualifiers: Hypertension type: essential hypertension Qualified Code(s): I10 - Essential (primary) hypertension (3) Use of herbal medication Priority: Secondary Status: Chronic (4) Type 2 diabetes mellitus Priority: Secondary Status: Chronic Comments: Appears to be controlled with her diet at this time with a recent A1c of 7.2%. Patient stating that she is prescribed to take metformin but she does not take it after reading on the side effects that it may impose. Recommend further outpatient follow-up with her primary care provider. (5) Acute electrocardiogram changes Priority: Primary Status: Ruled-out Comments: Patient denied chest pain or shortness of breath throughout this admission. Troponins negative 3. Echocardiogram unremarkable. (6) DVT prophylaxis Priority: Primary Status: Acute Comments: Subcutaneous Lovenox while admitted - Discharge Medications Prescriptions: cloNIDine HCl [CloNIDine HCl] 0.1 mg PO BID #60 tablet hydroCHLOROthiazide [Hydrochlorothiazide] 12.5 mg PO DAILY #30 tab Metoprolol XL (24 HR) Succ [Toprol Xl] 25 mg PO DAILY #60 Home Medications: LORazepam [Ativan] 0.5 mg PO BID PRN 06/13/16 [History] Pantoprazole Sodium [Protonix] 40 mg PO DAILY 06/13/16 [History] Metoprolol XL (24 HR) Succ [Toprol Xl] 25 mg PO DAILY #60 09/18/16 [Rx] cloNIDine HCl [CloNIDine HCl] 0.1 mg PO BID #60 tablet 09/18/16 [Rx] hydroCHLOROthiazide [Hydrochlorothiazide] 12.5 mg PO DAILY #30 tab 09/18/16 [Rx] Allergies/Adverse Reactions: Allergies JAIRON Inhibitors Allergy (Verified 09/17/16 15:02) Anaphylaxis clindamycin Adverse Reaction (Verified 09/17/16 15:02) Rash Penicillins Adverse Reaction (Verified 09/17/16 15:02) Rash ivp dye Allergy (Uncoded 09/17/16 11:55) See Comments Patient unsure what her reaction was- Procedures/tests Complete & Pending: Procedures Performed prior 72 hours Category Date Time Status EV echocardiogram Routine Y 09/17/16 15:03 Completed Date of admission: 09/17/16 14:56 Primary care physician: Gokul Howard MD Discharging clinician: Juany Loyola Anticipated date of discharge: 09/18/16 - Patient Status Disposition: Home, Self-Care Condition: Good Functional capacity at discharge: independent ambulation Overall status at discharge: patient is back to baseline - Discharge Instructions Follow Up With: Gokul Howard MD [Primary Care Provider] - Additional Instructions: Follow-up with primary care provider within one to 2 weeks, check blood pressure daily and keep a log for your primary care provider. - Diet and Activity Activity: increase activity as tolerated Diet: diabetic diet, low fat, low cholesterol, low salt diet Hospital course: Ms. Martin is a 75 year old female with past medical history of diabetes, hypertension, prior DC 2, status post Whipple procedure 2008, appendectomy, cholecystectomy, former heavy tobacco abuse. Patient presented to the emergency department chief complaint of elevated blood pressure. Patient stating she checked her blood pressure while at work and noticed that it was high then she went home and recheck that on the day of presentation and again it was elevated so she presented to the emergency department. Patient also reporting shortness of breath with exertion which is a new symptom for her. She denied lightheadedness, dizziness, headache, chest pain, palpitations, nausea vomiting or diarrhea, abdominal pain. She denied fever, chills, sweats. Nonspecific ST-T wave changes noted in the emergency department. Chest x-ray negative. Patient was admitted to the hospitalist service for further evaluation and management. Troponins negative 3. Echocardiogram revealing ejection fraction of 70%, mild diastolic dysfunction, mild , mild AR. Patient was euvolemic on examination throughout this admission. Patient denied chest pain or shortness of breath throughout this admission. At home, she was only on Toprol once a day. We attempted to change her to propanolol twice a day as it was effective in decreasing her blood pressure upon arrival however she refused stating she would only take her Toprol. We also attempted to start her on hydralazine which she refused after reading on the reported side effects of this medication. We started her on HCTZ which she was amenable to sit this was continued. Patient stating that she has taken clonidine in the past and states that she is amenable to taking it again but only on a short-term basis as she states that last time she took it, she was on it for 4 years and lost six teeth as a result of it. Her blood pressure was still mildly elevated but much better controlled at time of discharge. Ideally, we would have preferred to The patient another night to monitor her blood pressures but she was anxious to go home. She states that she will buy a blood pressure cuff and check her blood pressure daily at home. Also of note, patient is taking numerous herbal medications. She was highly encouraged to research these medications in the same way that she research as the FDA approved medications that we are attempting to change her to. She is under the misconception that because it says herbal that it is safe. We had a lengthy discussion with this she stated that she was given a start investigate these herbal supplements. Also sent an email to her primary care provider for continuity of care. Patient is aware of the risks of hypertension. She was discharged home in stable condition with close outpatient follow-up recommended. ITS Impressions Chest X-Ray 09/17/16 11:59 IMPRESSION: Negative chest x-ray. No evidence of acute cardiopulmonary disease. D/ / Heath Comer MD / Heath Comer MD Interpreting Provider: Heath Comer MD Echocardiogram impressions: Normal LV systolic function, LVEF 70%. Mild LV septal hypertrophy. Mild left ventricular diastolic dysfunction. Normal right ventricular size and function. Mildly dilated left atrium. Mild aortic stenosis. Mild aortic regurgitation. No evidence of pulmonary hypertension. - Time Spent with Patient Total time spent providing and/or coordinating discharge services: - Constitutional Vitals: Temp Pulse Resp BP Pulse Ox 98.1 F 73 16 161/75 97 09/18/16 15:30 09/18/16 15:30 09/18/16 15:30 09/18/16 15:30 09/18/16 15:30 General appearance: Present: A&O X 3, pleasant, no acute distress, answers questions appropriately - Head Head exam: Present: atraumatic, normocephalic - Eye Eye exam: Present: PERRL, conjuntiva pink, sclera anicteric Pupils: Present: PERRL - Neck Neck exam general surgery: Present: supple, trachea midline. Absent: lymphadenopathy - Respiratory Respiratory exam: Present: CTAB. Absent: accessory muscle use, rales, respiratory distress, rhonchi, wheezes - Cardiovascular Cardiovascular exam: Present: RRR, +S1, +S2. Absent: diastolic murmur, gallop, rubs, systolic murmur - GI/Abdominal GI/Abdominal exam: Present: normal bowel sounds, soft, no peritoneal signs. Absent: distended, tenderness - Extremities Exam Extremities exam: Present: warm, radial pulses palpable and symetrical. Absent : calf tenderness, cyanotic, pedal edema - Neurological Exam Neurological exam: Present: alert, CN II-XII intact, normal gait, oriented X3, no focal deficits, strengths equal and symetr throughout. Absent: pronater drift, facial droop, speech deficit - Skin Skin exam: Present: dry, intact, normal color, warm
== END 2016-09-18 16:26 | disposition home or self-care (01) ==
LOC: EMEROO 11:33 → 3BNU 11:33
PROVIDERS: ADMIT Internal Medicine; ATTEND Nurse Practitioner Family

== ENCOUNTER 2017-04-30 15:47 | Observation (INO) ==
[2017-04-30] MEDS ORDERED: *HR* Labetalol 20 MG/4 ML SYRINGE IVP ONE (16:25)
[2017-04-30] MEDS ORDERED: Ondansetron ODT 4 MG TAB.RAPDIS SL ONE (16:29)
--- NOTE | 2017-04-30 16:48 | Emergency Department Note ---
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 Blood pressure was checked and was extremely high and so the patient was brought to the emergency department. Symptoms began between 3 and 3:30 and the clonidine was taken at 320 and the patient presented here around 4:00. I did see the patient upon arrival and she is here with several of her coworkers. She denies any headache but did feel some heavy feeling on the temples bilaterally which began gradually and is now resolved. She denies any localized numbness or weakness of the extremities, slurred speech, facial droop or confusion. No chest pain. She has not been taking her blood pressure medicines and she normally takes clonidine and a beta jon. Social history: No smoking or alcohol. I did review her previous record she was recently admitted. Does have a history of coronary disease and cardiac stent. - Related Data Home Medications Medication Instructions Recorded Confirmed LORazepam [Ativan] 0.5 mg PO BID PRN 06/13/16 04/30/17 Pantoprazole Sodium [Protonix] 40 mg PO DAILY PRN 06/13/16 04/30/17 Metoprolol XL (24 HR) Succ [Toprol 25 mg PO BID 04/30/17 Xl] Nitroglycerin [Nitrostat] 0.4 mg SL Q5M PRN 04/30/17 04/30/17 Ondansetron [Zofran] 8 mg PO Q8H PRN 04/30/17 04/30/17 Previous Rx's Medication Instructions Recorded cloNIDine HCl [CloNIDine HCl] 0.1 mg PO BID #60 tablet 09/18/16 Allergies Allergy/AdvReac Type Severity Reaction Status Date / Time JAIRON Inhibitors Allergy Anaphylaxis Verified 09/17/16 15:02 clindamycin AdvReac Rash Verified 09/17/16 15:02 Penicillins AdvReac Rash Verified 09/17/16 15:02 ivp dye Allergy See Uncoded 09/17/16 11:55 Comments Review of Systems: Constitutional: No fever Vision: No blurred vision ENT: + rhinorrhea Respiratory: No cough Allergic: No allergies : No blood in urine GI: No blood in stool Hematologic: No bruising Dermatologic: No skin rash Musculoskeletal: No pain in the extremities Neuro: No numbness of the extremities at this time but does have intermittent right foot numbness which has been present for quite some time secondary to what she says is peripheral neuropathy Past Medical History - Past Medical History Medical history: Reports: diabetes, hypertension, myocardial infarction Surgical history: Reports: appendectomy, cholecystectomy, other (Whipple procedure 2009) Psychiatric history: Reports: anxiety 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 EYES: PERRL, EOMI, no scleral icterus NOSE: The nose is normal in appearance without rhinorrhea NECK: Supple without rigidity, no GUALBERTO RESP: Normal chest excursion with respiration; breath sounds clear and equal bilaterally; no wheezes, rhonchi, or rales CARD: Regular rhythm, without murmurs, rub or gallop ABD: Non-distended; non-tender, soft, without rigidity, rebound or guarding, No pulsatile abdominal mass SKIN: Normal for age and race; warm and dry; no apparent lesions, no rash NEUROLOGICAL: Patient is alert and oriented times three. Cranial nerves III- XII are intact. Sensory and motor functions are intact. Strength is 5/5 for flexion and extension in all 4 extremities. Patellar DTRS are equal and intact. Finger to nose testing is equal and normal bilaterally. - General Limitations: no limitations General appearance: alert Course Vital Signs Temperature 98.3 F 04/30/17 15:56 Pulse Rate 88 04/30/17 15:56 Respiratory Rate 18 04/30/17 15:56 Blood Pressure 238/107 04/30/17 15:56 O2 Sat by Pulse Oximetry 98 04/30/17 15:56 Temperature 98.3 F 04/30/17 15:56 Pulse Rate 63 04/30/17 17:39 Respiratory Rate 14 04/30/17 17:39 Blood Pressure 157/68 04/30/17 17:39 O2 Sat by Pulse Oximetry 99 04/30/17 17:39 Oxygen Delivery Oxygen Delivery Room Air Dizziness - MDM Narrative Medical decision making narrative: Patient's initial blood pressure was 237 systolic and a repeat is 249 systolic and the patient at this time is basically asymptomatic except for some nausea. I did review her EKG which shows normal sinus rhythm with a rate of 84 and does have some minimal ST depression as well as some lateral T-wave inversion this is similar to her previous EKG that I did compare to. Patient will be given labetalol 20 mg IV and a blood pressure rechecked with the goal to decrease the systolic pressure by 20%. Patient did have lightheadedness without vertigo and I do not suspect stroke. No chest pain or symptoms of acute coronary syndrome. I do not detect evidence of a abdominal aortic aneurysm or other life- threatening anatomic etiology at this time 1650 I did rev the lab as well as x-ray which is negative and a did go back into speak with the patient again at which point she told me she has mid abdominal pain radiating up into the chest and into the neck. This is a burning feeling sensation. This is concerning especially because of his intermittent nature and the fact that the initial onset of this was while her blood pressure was in the mid 200s and for that reason she will come in for further evaluation here including troponin testing, monitoring I did speak with the hospitalist accepts the patient for admission. At this point the patient is chest pain-free so a second EKG is not done. 1923 - Lab Data Result diagrams: 04/30/17 17:04 04/30/17 17:04 Lab Results 04/30/17 04/30/17 Range/Units 17: 17:04 WBC 5.5 (4.3-11.1) K/mcL RBC 4.43 (3.82-4.97) M/mcL Hgb 12.5 (11.5-15.4) g/dL Hct 37.6 (35.3-44.9) % MCV 84.9 (83.0-100.0) fL MCH 28.2 (28.0-33.3) pg MCHC 33.2 (31.6-35.5) g/dL RDW 13.4 (11.5-14.5) % Plt Count 232 (140-400) K/mcL MPV 10.1 (9.4-12.4) fL Sodium 135 L (136-145) mEq/L Potassium 4.1 (3.5-5.1) mEq/L Chloride 99 (98-107) mEq/L Carbon Dioxide 27 (23-29) mEq/L BUN 7 L (8-23) mg/dL Creatinine 0.72 (0.60-1.20) mg/dL Est GFR ( Amer) > 60 (> 60) Est GFR (Non-Af Amer) > 60 (> 60) BUN/Creatinine Ratio 10 (6-26) Glucose 318 H (70-105) mg/dL Calculated Osmolality 290 (280-300) Calcium 9.8 (8.6-10.3) mg/dL Troponin I < 0.03 (< 0.04) ng/mL
[2017-04-30 17:27] LABS: Hematocrit 37.6 % (35.3-44.9); Hemoglobin 12.5 g/dL (11.5-15.4); Mean Corpuscular HGB Conc 33.2 g/dL (31.6-35.5); Mean Corpuscular Hemoglobin 28.2 pg (28.0-33.3); Mean Corpuscular Volume 84.9 fL (83.0-100.0); Mean Platelet Volume 10.1 fL (9.4-12.4); Platelet Count 232 K/mcL (140-400); Red Blood Count 4.43 M/mcL (3.82-4.97); Red Cell Distribution Width 13.4 % (11.5-14.5)
[2017-04-30 17:47] LABS: Troponin I < 0.03 ng/mL (< 0.04)
[2017-04-30 17:49] LABS: BUN/Creatinine Ratio 10 (6-26); Blood Urea Nitrogen 7 mg/dL (8-23); Calcium 9.8 mg/dL (8.6-10.3); Carbon Dioxide 27 mEq/L (23-29); Chloride 99 mEq/L (98-107); Glucose 318 mg/dL (70-105); Osmolality,Calculated 290 (280-300); Potassium 4.1 mEq/L (3.5-5.1); Sodium 135 mEq/L (136-145); eGFR For African Americans > 60 (> 60); eGFR For Non-African Americans > 60 (> 60)
[2017-04-30] MEDS ORDERED: Naloxone 0.4 MG/ML INJ IVP PRN (19:59)
[2017-04-30] MEDS ORDERED: Acetaminophen 325 MG TABLET PO PRN (19:59)
--- NOTE | 2017-04-30 21:37 | Internal Med History&Physical ---
Date of Encounter: 04/30/17 Time of Encounter: 21:36 Assessment and Plan (1) Accelerated hypertension Current visit: Yes Status: Acute Patient presenting with accelerated hypertension. Observation. Resume home medications. Stressed importance of compliance with medications. Given her multiple risk factors for coronary artery disease, will trend troponins and We will get 2-D echocardiogram in a.m. moderate risk for complications (2) GERD (gastroesophageal reflux disease) Current visit: Yes Status: Acute Patient complains of nausea and heartburn. Symptoms are resolving now. We will start Pepcid. Qualifiers: Esophagitis presence: without esophagitis Qualified Code(s): K21.9 - Gastro -esophageal reflux disease without esophagitis (3) Hypertension Current visit: Yes Status: Chronic Management as above Qualifiers: Hypertension type: essential hypertension Qualified Code(s): I10 - Essential (primary) hypertension (4) Type 2 diabetes mellitus Current visit: Yes Status: Chronic Check A1c. Please patient on he sees his Accu-Cheks. Diabetic diet. Sliding scale insulin. Qualifiers: Diabetes mellitus complication status: with neurologic complications Diabetes mellitus complication detail: with polyneuropathy Diabetes mellitus mcfp insulin use: without mcfp use Qualified Code(s): E11.42 - Type 2 diabetes mellitus with diabetic polyneuropathy Internal Medicine - H&P: HPI Chief complaint: High blood pressure and nausea Admitted From: Emergency Dept Plans for Post Hospital Care: Home History of present illness: Ms. Martin is a 76 year old female patient with history of essential hypertension , diabetes, pancreatic tumor status post Whipple's procedure presented to the ER with complaints of nausea and heartburn along with headache that began while she was in her office seeing the patient. She had her blood pressure checked and it was severely elevated and so she came to the ER. She took Klonopin and that she is normally prescribed it. In the ER she was found to have a blood pressure of 238/107. She was given labetalol and since then her symptoms have improved. She denies any visual changes. Denies any chest pain. No palpitations. She apparently ate some ravioli that she normally does not eat and believes that that contributed to her symptoms of nausea and heartburn. The symptoms have now resolved. Patient admits that she is noncompliant with her medications as she does not like taking medications. Past Med Surg Social Fam HX - Past Medical History Attestation: Yes The following information was validated with the patient. Source: patient Medical history: diabetes, hypertension, myocardial infarction Psychiatric history: anxiety - Past Surgical History Surgical History: appendectomy, cholecystectomy, other - Social History Smoking Status: Current every day smoker Smokeless Tobacco Status: No Alcohol use: none Drug use: none - Family History Mother Living Status: Hx Family Cardiac Disorders: Yes Hx Family Cancer: No Father Living Status: Hx Family Cancer: Yes Internal Medicine - H&P: Meds LORazepam [Ativan] 0.5 mg PO BID PRN 06/13/16 [History] Pantoprazole Sodium [Protonix] 40 mg PO DAILY PRN 06/13/16 [History] cloNIDine HCl [CloNIDine HCl] 0.1 mg PO BID #60 tablet 09/18/16 [Rx] Metoprolol XL (24 HR) Succ [Toprol Xl] 25 mg PO BID 04/30/17 [History] Nitroglycerin [Nitrostat] 0.4 mg SL Q5M PRN 04/30/17 [History] Ondansetron [Zofran] 8 mg PO Q8H PRN 04/30/17 [History] 3 Allergy/AdvReac Type Severity Reaction Status Date / Time JAIRON Inhibitors Allergy Anaphylaxis Verified 09/17/16 15:02 clindamycin AdvReac Rash Verified 09/17/16 15:02 Penicillins AdvReac Rash Verified 09/17/16 15:02 ivp dye Allergy See Uncoded 09/17/16 11:55 Comments All Systems PM: A 10-system review of systems was performed and is negative for pertinent findings except as documented above in the HPI. - Constitutional Constitutional: no chills, no fever(s), no night sweats - EENT Eyes: no change in vision, no discharge, no pain, no photophobia Ears: no ear discharge, no ear pain, no tinnitus Nose, mouth and throat: no dysphagia, no nasal discharge, no neck pain, no sore throat - Cardiovascular Cardiovascular ROS IM: no chest pain, no diaphoresis, no dyspnea, no lightheadedness, no palpitations, no syncope - Respiratory Respiratory: no cough, no dyspnea, no wheezing, no excessive phlegm production - Gastrointestinal Gastrointestinal: heartburn, nausea, no abdominal pain, no diarrhea, no hematemesis, no hematochezia, no melena, no vomiting - Genitourinary Genitourinary: no change in urinary stream, no dysuria, no flank pain, no hematuria - Musculoskeletal Musculoskeletal ROS IM: no numbness, no tingling - Integumentary Integumentary IM: no rash, no unusual bruising - Neurological Neurological ROS: no confusion, no convulsions, no focal weakness, no numbness, no tingling, no tremor(s) - Constitutional Vitals: Temp Pulse Resp BP Pulse Ox 97.5 F L 63 16 130/60 98 04/30/17 20:50 04/30/17 20:50 04/30/17 20:50 04/30/17 20:50 04/30/17 20:50 General appearance: Present: cooperative, A&O X 3, pleasant, answers questions appropriately - Eye Eye exam: Present: EOMI, PERRL, conjuntiva pink, sclera anicteric - Neck Neck exam general surgery: Present: supple, trachea midline. Absent: lymphadenopathy - Respiratory Respiratory exam: Present: CTAB. Absent: accessory muscle use, rales, rhonchi, wheezes - Cardiovascular Cardiovascular exam: Present: RRR, +S1, +S2. Absent: diastolic murmur, gallop, rubs, systolic murmur - GI/Abdominal GI/Abdominal exam: Present: normal bowel sounds, soft, no peritoneal signs. Absent: distended, tenderness - Extremities Exam Extremities exam: Present: warm, radial pulses palpable and symmetrical. Absent : calf tenderness, cyanotic, pedal edema - Neurological Exam Neurological exam: Present: CN II-XII intact, oriented X3, no focal deficits. Absent: facial droop, speech deficit - Skin Skin exam: Present: dry, intact Internal Med - H&P Results - Labs CBC & Chem 7: 04/30/17 17:04 04/30/17 17:04 - Impressions Impressions Chest X-Ray 04/30/17 16:24 IMPRESSION: No acute process. Scoliosis. D/ / 04/30/2017 16:47:19 Tarik Busch MD / [facility] Interpreting Provider: Tarik Busch MD
[2017-04-30] MEDS ORDERED: Ondansetron ODT 4 MG TAB.RAPDIS PO PRN (21:59)
[2017-04-30] MEDS ORDERED: *HR* LORazepam 0.5 MG TABLET PO PRN (21:59)
[2017-04-30] MEDS ORDERED: Dextrose Gel 15 GM/37.5 ML TUBE PO PRN ×2 (21:59)
[2017-04-30] MEDS ORDERED: *HR* Dextrose 50 % in Water (Syg) 50 ML SYRINGE IVP PRN (21:59)
[2017-04-30] MEDS ORDERED: D5% in Water 1,000 ML IVC PRN (21:59)
[2017-04-30] MEDS ORDERED: Nitroglycerin 0.4 MG TAB.SUBL SL PRN (21:59)
[2017-05-01 05:32] LABS: BUN/Creatinine Ratio 11 (6-26); Blood Urea Nitrogen 8 mg/dL (8-23); Calcium 9.3 mg/dL (8.6-10.3); Carbon Dioxide 28 mEq/L (23-29); Chloride 105 mEq/L (98-107); Chol/HDL Ratio 4.5 (0-4.9); Cholesterol 188 mg/dL (< 200); Glucose 201 mg/dL (70-105); HDL Cholesterol 42 mg/dL (40-59); LDL Cholesterol,Calculated 87 mg/dL (0-99); Osmolality,Calculated 290 (280-300); Potassium 4.1 mEq/L (3.5-5.1); Sodium 138 mEq/L (136-145); Triglycerides 295 mg/dL (< 150); Troponin I < 0.03 ng/mL (< 0.04); eGFR For African Americans > 60 (> 60); eGFR For Non-African Americans > 60 (> 60)
[2017-05-01] MEDS: cloNIDine HCl 0.1 MG TABLET PO SCH ×2 (08:41→21:52)
[2017-05-01] MEDS: Insulin LISPRO 300 UNITS/3 ML VIAL SQ SCH ×3 (08:41→17:18)
[2017-05-01] MEDS: Metoprolol XL (24 HR) Succ 25 MG TAB.ER.24H PO SCH ×2 (08:41→21:58)
[2017-05-01 09:53] LABS: Hemoglobin A1C 8.5 %
--- NOTE | 2017-05-01 16:59 | Internal Med Progress Note ---
Date of Encounter: 05/01/17 Time of Encounter: 16:57 - Assessment and plan (1) Accelerated hypertension Current Visit: Yes Status: Acute Assessment and plan: Patient admitted with hypertensive urgency secondary to not taking her home medications. Her blood pressure has been much better controlled after the treatment she has received. Resume home medications. Monitor blood pressure and continue cardiac monitoring overnight Spent some time discussing importance of taking her medications as directed. (2) GERD (gastroesophageal reflux disease) Current Visit: Yes Status: Acute Assessment and plan: Continue home medications Qualifiers: Esophagitis presence: without esophagitis Qualified Code(s): K21.9 - Gastro -esophageal reflux disease without esophagitis (3) Type 2 diabetes mellitus Current Visit: Yes Status: Chronic Assessment and plan: Date diet Accu-Cheks with sliding scale insulin coverage Hemoglobin A1c 8.5 Qualifiers: Diabetes mellitus longterm insulin use: without terminologist use Diabetes mellitus complication status: with neurologic complications Diabetes mellitus complication detail: with polyneuropathy Qualified Code(s): E11.42 - Type 2 diabetes mellitus with diabetic polyneuropathy - Subjective Interval history: Patient is lying in bed. She is complaining of a top of her head headache feels strange to her. She feels is related to her blood pressure. She admits that she does not take her blood pressure medicine as directed. She stated she stopped taking her clonidine because it was causing her teeth to decay. She is a little anxious. Denies chest pain shortness of breath fevers chills nausea or vomiting - Constitutional Vitals: Temp Pulse Resp BP Pulse Ox 98.5 F 63 18 160/68 95 05/01/17 15:11 05/01/17 15:11 05/01/17 15:11 05/01/17 15:11 05/01/17 15:11 General appearance: Present: cooperative, A&O X 3, pleasant, answers questions appropriately - Head Head exam: Present: atraumatic, normocephalic - Eye Eye exam: Present: PERRL, conjuntiva pink, sclera anicteric Pupils: Present: PERRL - Neck Neck exam general surgery: Present: supple, trachea midline. Absent: lymphadenopathy - Respiratory Respiratory exam: Present: CTAB. Absent: accessory muscle use, rales, rhonchi, wheezes - Cardiovascular Cardiovascular exam: Present: RRR, +S1, +S2. Absent: diastolic murmur, gallop, rubs, systolic murmur - GI/Abdominal GI/Abdominal exam: Present: normal bowel sounds, soft, no peritoneal signs. Absent: distended, tenderness - Extremities Exam Extremities exam: Present: warm, radial pulses palpable and symmetrical. Absent : calf tenderness, cyanotic, pedal edema - Neurological Exam Neurological exam: Present: alert, normal gait, oriented X3, no focal deficits. Absent: pronater drift, facial droop, speech deficit - Skin Skin exam: Present: dry, intact, normal color, warm Internal Medicine: Result - Labs CBC & Chem 7: 04/30/17 17:04 05/01/17 04:44 Labs: BMP 05/01/17 04:44 Sodium 138 Potassium 4.1 Chloride 105 Carbon Dioxide 28 BUN 8 Creatinine 0.70 Glucose 201 H Calcium 9.3 Cardiac Enzymes 04/30/17 05/01/17 Range/Units 22:30 04:44 Troponin I < 0.03 < 0.03 (< 0.04) ng/mL Consult Discharge Plan - Plan Referrals: Gokul Howard MD [Primary Care Provider] -
[2017-05-01] MEDS ORDERED: Insulin LISPRO 300 UNITS/3 ML VIAL SQ SCH (21:00)
[2017-05-02] MEDS ORDERED: *HR* Heparin 5,000 UNIT/ML VIAL SQ SCH (06:00)
[2017-05-02] MEDS: Metoprolol XL (24 HR) Succ 25 MG TAB.ER.24H PO SCH (08:17)
[2017-05-02] MEDS: cloNIDine HCl 0.1 MG TABLET PO SCH (08:17)
[2017-05-02] MEDS: Insulin LISPRO 300 UNITS/3 ML VIAL SQ SCH ×2 (08:38→12:33)
[2017-05-02 11:52] VITALS: BP 110/58
--- NOTE | 2017-05-02 12:29 | Electrocardiograph Report ---
[place] [id number] Test Date: 2017-04-30 Pat Name: Yessenia Martin Department: 102 Room: 3B16 Gender: F Application Release Manager: Naomi : 1940 Requested By: Sandra Matthews Order Number: [id number] Reading MD: Carlitos Gregg Measurements Intervals Abbott Rate: 84 P: 84 DC: 159 QRS: 61 QRSD: 101 T: 100 QT: 382 QTc: 423 Interpretive Statements SINUS RHYTHM MODERATE ST DEPRESSION Electronically Signed On 05-02-2017 12:28:04 EST by Carlitos Gregg
--- NOTE | 2017-05-02 16:26 | Discharge Summary ---
- NOTES TO OUTPATIENT PROVIDER Notes to Outpatient Provider: elevated glucose and blood pressure Date of Encounter: 05/02/17 Time of Encounter: 16:24 - Discharge Diagnosis (1) Accelerated hypertension Priority: Primary Status: Resolved (2) GERD (gastroesophageal reflux disease) Priority: Primary Status: Chronic Qualifiers: Esophagitis presence: without esophagitis Qualified Code(s): K21.9 - Gastro -esophageal reflux disease without esophagitis (3) Type 2 diabetes mellitus Priority: Primary Status: Chronic Qualifiers: Diabetes mellitus senior care insulin use: without equipment operator intermodal yard 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 Martin is a 76 year old female who presented to the emergency room with complaints of nausea and heartburn as well as a headache that began while she was in office today seen a patient. 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 She had her blood pressure checked and severe elevated so she came to the ER. She had taken a oral clonidine that she was normally prescribed before arrival but has not been taking on a regular basis because she feels it causes tooth decay. In the ER she was found to have a blood pressure of 238/107. She was given labetalol and her symptoms improved. She is currently taking her home medications which includes the clonidine and toporol and all her symptoms have resolved. He feels her nausea and heartburn related to eating a can of Rafael Oley that she normally never eats. Those symptoms have all resolved as well. She is concerned about her elevated blood glucose and states that status post [place] she was told she would become a diabetic. She has been noncompliant with medications and follow-up care. She states she will stop smoking, she will follow-up with her PCP and get to the bottom of her diabetes. Her echocardiogram was completed and discussed her results. LVEF 60%, mild left ventricular diastolic dysfunction and normal right ventricular structure and function. No significant valvular dysfunction and no significant gradient across aortic valve. Trace aortic regurgitation. No pulmonary hypertension. Patient's blood pressure has been stable she will be discharged on her ordered home medications with no changes and will follow-up with her PCP within the week. Discharge discussed with: patient, nurse Time spent discussing smoking cessation with patient: 3 to 10 minutes - Time Spent with Patient Total time spent providing and/or coordinating discharge services: Less than 30 minutes - Discharge Medications Home Medications: LORazepam [Ativan] 0.5 mg PO BID PRN 06/13/16 [History] Pantoprazole Sodium [Protonix] 40 mg PO DAILY PRN 06/13/16 [History] cloNIDine HCl [CloNIDine HCl] 0.1 mg PO BID #60 tablet 09/18/16 [Rx] Metoprolol XL (24 HR) Succ [Toprol Xl] 25 mg PO BID 04/30/17 [History] Nitroglycerin [Nitrostat] 0.4 mg SL Q5M PRN 04/30/17 [History] Ondansetron [Zofran] 8 mg PO Q8H PRN 04/30/17 [History] Allergies/Adverse Reactions: 3 Allergy/AdvReac Type Severity Reaction Status Date / Time JAIRON Inhibitors Allergy Anaphylaxis Verified 09/17/16 15:02 clindamycin AdvReac Rash Verified 09/17/16 15:02 Penicillins AdvReac Rash Verified 09/17/16 15:02 ivp dye Allergy See Uncoded 09/17/16 11:55 Comments Date of admission: 04/30/17 19:50 Primary care physician: Gokul Howard MD Discharging clinician: Veronica Jenkins Anticipated date of discharge: 05/02/17 - Constitutional Vitals: Temp Pulse Resp BP Pulse Ox 98.5 F 59 17 110/58 95 05/02/17 11:51 05/02/17 11:51 05/02/17 11:51 05/02/17 11:51 05/02/17 11:51 General appearance: Present: cooperative, A&O X 3, pleasant, no acute distress, answers questions appropriately - Head Head exam: Present: atraumatic, normocephalic - Eye Eye exam: Present: PERRL, conjuntiva pink, sclera anicteric Pupils: Present: PERRL - Neck Neck exam general surgery: Present: supple, trachea midline. Absent: lymphadenopathy - Respiratory Respiratory exam: Present: CTAB. Absent: accessory muscle use, rales, rhonchi, wheezes - Cardiovascular Cardiovascular exam: Present: RRR, +S1, +S2. Absent: diastolic murmur, gallop, rubs, systolic murmur - GI/Abdominal GI/Abdominal exam: Present: normal bowel sounds, soft, no peritoneal signs. Absent: distended, tenderness - Extremities Exam Extremities exam: Present: warm, radial pulses palpable and symmetrical. Absent : calf tenderness, cyanotic, pedal edema - Neurological Exam Neurological exam: Present: CN II-XII intact, oriented X3, no focal deficits. Absent: pronater drift, facial droop, speech deficit - Skin Skin exam: Present: dry, intact, normal color, warm - Patient Status Disposition: Home, Self-Care Condition: Fair Overall status at discharge: patient is back to baseline - Discharge Instructions Follow Up With: Gokul Howard MD [Primary Care Provider] - - Diet and Activity Activity: resume usual activities as tolerated Diet: advance to your usual diet, diabetic diet, low fat, low cholesterol, low salt diet
== END 2017-05-02 17:47 | disposition home or self-care (01) ==
LOC: 3BNU 15:47 → EMEROO 15:47 → 3BNU 20:31
PROVIDERS: ADMIT Internal Medicine; ATTEND Registered Nurse

== ENCOUNTER 2017-06-17 18:51 | Observation (INO) ==
[2017-06-17] MEDS ORDERED: *HR* Labetalol 20 MG/4 ML SYRINGE IVP ONE (19:05)
[2017-06-17] MEDS ORDERED: *HR* Labetalol 100 MG/20 ML MDV ONE (19:13)
[2017-06-17] MEDS ORDERED: 0.9 % Sodium Chloride 1,000 ML IVC ONE (19:18)
[2017-06-17] MEDS ORDERED: *HR* LORazepam 2 MG/ML VIAL IVP ONE (19:19)
--- NOTE | 2017-06-17 19:25 | Emergency Department Note ---
Disposition Clinical Impression: Hypertension Qualifiers: Hypertension type: unspecified Qualified Code(s): I10 - Essential (primary) hypertension Headache Qualifiers: Headache type: unspecified Headache chronicity pattern: unspecified pattern Intractability: not intractable Qualified Code(s): R51 - Headache Disposition: Admitted As Inpatient Condition: Fair Referrals: NONE,PCP [Primary Care Provider] - Forms: ED Satisfaction Letter Time of Disposition: 20:37 General Adult HPI - General Chief complaint: ED Neuro Symptoms/Deficit Stated complaint: flushed, shaking, weak Time Seen by Provider: 06/17/17 19:04 Source: patient Mode of arrival: wheelchair Limitations: no limitations Nursing Notes Reviewed: Yes Vital Signs Reviewed: Yes - History of Present Illness HPI Narrative: 76-year-old female presents for evaluation of flushing and shaking sensation. Patient states she also has a headache. Notes symptom onset was approximately an hour prior to ED arrival. She states that she has had a parietal temporal headache. Patient also states that she feels is related to her blood pressure. Patient to occur blood pressure medication prior to arrival. Patient's also took Ativan which she uses when necessary. Patient states that she has been on clonidine as well intermittently over the past week but is not had any over the past couple days. Patient denies any chest pain. Patient does note some dyspnea. Patient describes shaking in the upper extremities. Patient also noted some numbness down her legs. Patient denies any vision changes. Patient states that she feels generally weak. Patient states she also has a history of an WI but does not have any prior stents. Family states that the patient has been admitted in the past for elevated blood pressure. Pain Scale: 4 - Related Data Home Medications Medication Instructions Recorded Confirmed LORazepam [Ativan] 0.5 mg PO BID PRN 06/13/16 06/17/17 Pantoprazole Sodium [Protonix] 40 mg PO DAILY PRN 06/13/16 06/17/17 Metoprolol XL (24 HR) Succ [Toprol 25 mg PO BID 04/30/17 06/17/17 Xl] Nitroglycerin [Nitrostat] 0.4 mg SL Q5M PRN 04/30/17 06/17/17 Ondansetron [Zofran] 8 mg PO Q8H PRN 04/30/17 06/17/17 Metformin HCl [Metformin HCl ER] 500 mg PO QPM 06/17/17 06/17/17 cloNIDine HCl [CloNIDine HCl] 0.1 mg PO BID PRN 06/17/17 06/17/17 Allergies Allergy/AdvReac Type Severity Reaction Status Date / Time JAIRON Inhibitors Allergy Anaphylaxis Verified 06/17/17 19:42 clindamycin AdvReac Rash Verified 06/17/17 19:42 Penicillins AdvReac Rash Verified 06/17/17 19:42 ivp dye Allergy See Uncoded 09/17/16 11:55 Comments All systems ED: reviewed and negative except as stated. Constitutional: Denies: fever Cardiovascular: Denies: chest pain Respiratory: Reports: dyspnea. Denies: cough Gastrointestinal: Denies: abdominal pain, nausea, vomiting, diarrhea Neurological: Reports: headache, weakness Past Medical History - Past Medical History Source: patient, obtained from family Medical history: Reports: diabetes, hypertension, myocardial infarction Surgical history: Reports: appendectomy, cholecystectomy, other Psychiatric history: Reports: anxiety REVERSE UNIT OPERATOR history: Reports: no REVERSE UNIT OPERATOR history, bilateral tubal ligation - Social History Smoking Status: Never smoker Smokeless Tobacco Status: No Alcohol use: Reports: none Drug use: Reports: none Physical Exam - General Limitations: no limitations General appearance: alert, in no apparent distress, anxious - Head Head exam: atraumatic, normocephalic, normal inspection - Eye Eye exam: Present: normal appearance, PERRL, EOMI - ENT ENT exam: normal exam, other (Red flushing of the face.) - Neck Neck exam: Present: normal inspection, trachea midline - Chest Chest inspection: Present: normal inspection, symmetric chest wall rise - Respiratory Respiratory exam: Present: normal lung sounds bilaterally. Absent: respiratory distress - Cardiovascular Cardiovascular exam: Present: normal rhythm, tachycardia. Absent: systolic murmur - Abdominal Exam Abdominal exam: Present: soft, Non-Tender - Extremities Exam Extremities exam: Present: normal inspection. Absent: pedal edema - Back Exam Back exam: Present: normal inspection - Neurological Exam Neurological exam: Present: alert, oriented X3, CN II-XII intact - Expanded Neurological Exam Patient oriented to: Present: person, place, time Speech: Present: fluid speech Cranial nerves: EOM function (II, III, IV, ): Normal, facial sensation (V): Normal, facial palsy (VII): Normal, spinal accessory function (XI): Normal, tongue deviation (XII): Normal Motor strength - LUE: 5/5 Motor strength - RUE: 5/5 Motor strength - LLE: 5/5 Motor strength - RLE: 5/5 Coma Scale Eye Opening: Spontaneous Coma Scale Motor Response: Obeys Commands Coma Scale Verbal Response: Oriented Coma Scale Total: 15 - Skin Skin exam: Present: warm, dry, intact, normal color Course Course Narrative: Patient seen and examined. Patient does not have a focal neurologic deficit currently. Patient does not appear to be quite anxious. Patient does have an elevated blood pressure was an unreadable systolic blood pressure. Patient's diastolic was 175. Review the medication list reveals that the patient is on clonidine. Possible medication related. Patient will be given labetalol also started on a nicardipine drip with Ativan. Patient also get a head CT chest x- ray and screening cardiopulmonary evaluation. - Reevaluation(s) Reevaluation #1: Patient blood pressure did respond with a one dose of labetalol. Patient tolerated also responded. Patient's blood pressure will be gradually titrated down. Time: 19:50 Reevaluation #2: blood pressure improved target goal systolic less than 180. Patient was gradually titrated off the nicardipine. Time: 20:37 Reevaluation #3: Patient seen and examined. Patient states that her symptoms have resolved. Patient's resting comfortably. Patient's blood pressures less than 180 systolic. Patient's not on nicardipine. Patient's updated on plan of care. Time: 20:50 - Consultations Consultation #1: Awaiting callback from interventional cardiology. Time: 19:59 Consultation #2: Discussed the case with the supervisor asbestos textile to review the EKGs. Time: 20:15 Vital Signs Temperature 98.8 F 06/17/17 18:58 Pulse Rate 135 06/17/17 18:58 Respiratory Rate 24 06/17/17 18:58 Blood Pressure 241/117 06/17/17 18:58 O2 Sat by Pulse Oximetry 98 06/17/17 18:58 Temperature 98.8 F 06/17/17 18:58 Pulse Rate 82 06/17/17 20:33 Respiratory Rate 18 06/17/17 20:33 Blood Pressure 146/64 06/17/17 20:33 O2 Sat by Pulse Oximetry 96 06/17/17 20:33 Oxygen Delivery Oxygen Delivery Room Air Medical Decision Making - MDM Narrative Medical decision making narrative: Patient presents for concerns of shaking and a headache. Patient states that she felt it was related to her blood pressure. Patient did have elevated blood pressures at triage. Patient's blood pressure was titrated down to a systolic goal less than 180. Patient's symptoms improved. Patient did have a screening cardiopulmonary evaluation. Patient's initial 12-lead EKG was discussed with the supervisor asbestos textile who recommended serial troponins and treating the blood pressure. Patient head CT shows no acute findings. Patient labs also are clinically unremarkable. Patient be admitted to the hospitalist service for further evaluation and monitoring of her elevated blood pressure. Concerns of inadequate control at home. Patient was not a stroke alert given no focal neurologic findings. - Lab Data Lab results reviewed: Yes I reviewed the patient's lab results. Result diagrams: 06/17/17 19:27 06/17/17 19:19 Lab Results 06/17/17 06/17/17 06/17/17 Range/Units 18:55 19:17 19:19 WBC (4.3-11.1) K/mcL RBC (3.82-4.97) M/mcL Hgb (11.5-15.4) g/dL Hct (35.3-44.9) % MCV (83.0-100.0) fL MCH (28.0-33.3) pg MCHC (31.6-35.5) g/dL RDW (11.5-14.5) % Plt Count (140-400) K/mcL MPV (9.4-12.4) fL Immature Gran % (0-4) % Seg Neutrophils % % Lymphocytes % % Monocytes % % Eosinophils % % Basophils % % Neutrophils # (1.6-8.9) K/mcL Lymphocytes # (0.6-4.6) K/mcL Monocytes # (0.0-1.3) K/mcL Eosinophils # (0.0-0.6) K/mcL Basophils # (0.0-0.2) K/mcL Immature Plt Fraction (1.1-6.1) % PT 10.5 (9.4-12.1) Seconds INR 1.0 Sodium 140 (136-145) mEq/L Potassium 4.0 (3.5-5.1) mEq/L Chloride 105 (98-107) mEq/L Carbon Dioxide 23 (23-29) mEq/L BUN 7 L (8-23) mg/dL Creatinine 0.72 (0.60-1.20) mg/dL Est GFR ( Amer) > 60 (> 60) Est GFR (Non-Af Amer) > 60 (> 60) BUN/Creatinine Ratio 10 (6-26) Glucose 277 H (70-105) mg/dL POC Glucose 235 H (70-99) mg/dL Calculated Osmolality 298 (280-300) Calcium 9.8 (8.6-10.3) mg/dL Troponin I < 0.03 (< 0.04) ng/mL TSH 4.418 (0.340-5.600) mcIU/mL 06/17/17 Range/Units 19:27 WBC 6.9 (4.3-11.1) K/mcL RBC 4.92 (3.82-4.97) M/mcL Hgb 13.9 (11.5-15.4) g/dL Hct 41.9 (35.3-44.9) % MCV 85.2 (83.0-100.0) fL MCH 28.3 (28.0-33.3) pg MCHC 33.2 (31.6-35.5) g/dL RDW 13.5 (11.5-14.5) % Plt Count 273 (140-400) K/mcL MPV 10.0 (9.4-12.4) fL Immature Gran % 0.1 (0-4) % Seg Neutrophils % 52.3 % Lymphocytes % 37.5 % Monocytes % 7.7 % Eosinophils % 1.7 % Basophils % 0.7 % Neutrophils # 3.6 (1.6-8.9) K/mcL Lymphocytes # 2.6 (0.6-4.6) K/mcL Monocytes # 0.5 (0.0-1.3) K/mcL Eosinophils # 0.1 (0.0-0.6) K/mcL Basophils # 0.1 (0.0-0.2) K/mcL Immature Plt Fraction 2.2 (1.1-6.1) % PT (9.4-12.1) Seconds INR Sodium (136-145) mEq/L Potassium (3.5-5.1) mEq/L Chloride (98-107) mEq/L Carbon Dioxide (23-29) mEq/L BUN (8-23) mg/dL Creatinine (0.60-1.20) mg/dL Est GFR ( Amer) (> 60) Est GFR (Non-Af Amer) (> 60) BUN/Creatinine Ratio (6-26) Glucose (70-105) mg/dL POC Glucose (70-99) mg/dL Calculated Osmolality (280-300) Calcium (8.6-10.3) mg/dL Troponin I (< 0.04) ng/mL TSH (0.340-5.600) mcIU/mL - Radiology Data Radiology results reviewed: Yes I reviewed the patient's radiology results. Chest X-Ray 06/17/17 19:17 IMPRESSION: No acute process. D/ / Albert Chavis MD / Albert Chavis MD Interpreting Provider: Albert Chavis MD Head CT 06/17/17 19:18 IMPRESSION: No acute intracranial abnormality. D/ / Esvin Winters MD / Esvin Winters MD Interpreting Provider: Esvin Winters MD - EKG Data EKG #1 EKG attestation: Yes I reviewed and interpreted this EKG. EKG shows normal: sinus rhythm Rate: normal Rhythm: NSR [place]/QRS: normal ST segment elevation in: III (0.5mm), aVF (0.5mm) Interpretation: unchanged when compared to prior tracing (date) (2016), nonspecific ST-T wave changes S.B.A.R. - S.B.A.R. Situation: Demographics Background: Presenting Complaint Assessment: Vital Signs, Patient/Family Expectation Recommendation: Barrier(s) to disposition S.B.A.R. Report Given to: Dr. Denton [email or web address] Repor Time: 21:00
[2017-06-17 19:43] LABS: Basophils # 0.1 K/mcL (0.0-0.2); Basophils % 0.7 %; Eosinophils # 0.1 K/mcL (0.0-0.6); Eosinophils % 1.7 %; Hematocrit 41.9 % (35.3-44.9); Hemoglobin 13.9 g/dL (11.5-15.4); Immature Granulocytes % 0.1 % (0-4); Immature Platelets 2.2 % (1.1-6.1); Lymphocytes # 2.6 K/mcL (0.6-4.6); Lymphocytes % 37.5 %; Mean Corpuscular HGB Conc 33.2 g/dL (31.6-35.5); Mean Corpuscular Hemoglobin 28.3 pg (28.0-33.3); Mean Corpuscular Volume 85.2 fL (83.0-100.0); Monocytes # 0.5 K/mcL (0.0-1.3); Monocytes % 7.7 %; Neutrophils # 3.6 K/mcL (1.6-8.9); Platelet Count 273 K/mcL (140-400); Red Blood Count 4.92 M/mcL (3.82-4.97); Red Cell Distribution Width 13.5 % (11.5-14.5); Segmented Neutrophils % 52.3 %
[2017-06-17 19:55] LABS: Prothrombin Time 10.5 Seconds (9.4-12.1)
[2017-06-17] MEDS: niCARdipine 40 MG/200 ML MLS IVC SCH (19:55)
[2017-06-17 20:09] LABS: Thyroid Stimulating Hormone 4.418 mcIU/mL (0.340-5.600)
[2017-06-17 20:31] LABS: BUN/Creatinine Ratio 10 (6-26); Blood Urea Nitrogen 7 mg/dL (8-23); Calcium 9.8 mg/dL (8.6-10.3); Carbon Dioxide 23 mEq/L (23-29); Chloride 105 mEq/L (98-107); Glucose 277 mg/dL (70-105); Osmolality,Calculated 298 (280-300); Sodium 140 mEq/L (136-145); eGFR For African Americans > 60 (> 60); eGFR For Non-African Americans > 60 (> 60)
[2017-06-17 20:32] LABS: Troponin I < 0.03 ng/mL (< 0.04)
--- NOTE | 2017-06-17 21:10 | Emergency Department Note ---
Disposition Clinical Impression: Hypertension Qualifiers: Hypertension type: unspecified Qualified Code(s): I10 - Essential (primary) hypertension Headache Qualifiers: Headache type: unspecified Headache chronicity pattern: unspecified pattern Intractability: not intractable Qualified Code(s): R51 - Headache Disposition: Admitted As Inpatient Condition: Fair Referrals: NONE,PCP [Primary Care Provider] - Forms: ED Satisfaction Letter General Adult HPI - General Chief complaint: ED Neuro Symptoms/Deficit Stated complaint: flushed, shaking, weak Time Seen by Provider: 06/17/17 19:04 Source: patient Mode of arrival: wheelchair Limitations: no limitations Nursing Notes Reviewed: Yes Vital Signs Reviewed: Yes - History of Present Illness Pain Scale: 4 - Related Data Home Medications Medication Instructions Recorded Confirmed LORazepam [Ativan] 0.5 mg PO BID PRN 06/13/16 06/17/17 Pantoprazole Sodium [Protonix] 40 mg PO DAILY PRN 06/13/16 06/17/17 Metoprolol XL (24 HR) Succ [Toprol 25 mg PO BID 04/30/17 06/17/17 Xl] Nitroglycerin [Nitrostat] 0.4 mg SL Q5M PRN 04/30/17 06/17/17 Ondansetron [Zofran] 8 mg PO Q8H PRN 04/30/17 06/17/17 Metformin HCl [Metformin HCl ER] 500 mg PO QPM 06/17/17 06/17/17 cloNIDine HCl [CloNIDine HCl] 0.1 mg PO BID PRN 06/17/17 06/17/17 Allergies Allergy/AdvReac Type Severity Reaction Status Date / Time JAIRON Inhibitors Allergy Anaphylaxis Verified 06/17/17 19:42 clindamycin AdvReac Rash Verified 06/17/17 19:42 Penicillins AdvReac Rash Verified 06/17/17 19:42 ivp dye Allergy See Uncoded 09/17/16 11:55 Comments Constitutional: Denies: fever Cardiovascular: Denies: chest pain Respiratory: Reports: dyspnea. Denies: cough Gastrointestinal: Denies: abdominal pain, nausea, vomiting, diarrhea Neurological: Reports: headache, weakness Past Medical History - Past Medical History Medical history: Reports: diabetes, hypertension, myocardial infarction Surgical history: Reports: appendectomy, cholecystectomy, other Psychiatric history: Reports: anxiety WOOD CASKET MAKER history: Reports: no WOOD CASKET MAKER history, bilateral tubal ligation - Social History Smoking Status: Never smoker Smokeless Tobacco Status: No Alcohol use: Reports: none Drug use: Reports: none Physical Exam - General Limitations: no limitations General appearance: alert, in no apparent distress, anxious Course Vital Signs Temperature 98.8 F 06/17/17 18:58 Pulse Rate 135 06/17/17 18:58 Respiratory Rate 24 06/17/17 18:58 Blood Pressure 241/117 06/17/17 18:58 O2 Sat by Pulse Oximetry 98 06/17/17 18:58 Temperature 98.8 F 06/17/17 18:58 Pulse Rate 82 06/17/17 20:33 Respiratory Rate 18 06/17/17 20:33 Blood Pressure 146/64 06/17/17 20:33 O2 Sat by Pulse Oximetry 96 06/17/17 20:33 Oxygen Delivery Oxygen Delivery Room Air Medical Decision Making - Lab Data Result diagrams: 06/17/17 19:27 06/17/17 19:19 Lab Results 06/17/17 06/17/17 06/17/17 Range/Units 18:55 19:17 19:19 WBC (4.3-11.1) K/mcL RBC (3.82-4.97) M/mcL Hgb (11.5-15.4) g/dL Hct (35.3-44.9) % MCV (83.0-100.0) fL MCH (28.0-33.3) pg MCHC (31.6-35.5) g/dL RDW (11.5-14.5) % Plt Count (140-400) K/mcL MPV (9.4-12.4) fL Immature Gran % (0-4) % Seg Neutrophils % % Lymphocytes % % Monocytes % % Eosinophils % % Basophils % % Neutrophils # (1.6-8.9) K/mcL Lymphocytes # (0.6-4.6) K/mcL Monocytes # (0.0-1.3) K/mcL Eosinophils # (0.0-0.6) K/mcL Basophils # (0.0-0.2) K/mcL Immature Plt Fraction (1.1-6.1) % PT 10.5 (9.4-12.1) Seconds INR 1.0 Sodium 140 (136-145) mEq/L Potassium 4.0 (3.5-5.1) mEq/L Chloride 105 (98-107) mEq/L Carbon Dioxide 23 (23-29) mEq/L BUN 7 L (8-23) mg/dL Creatinine 0.72 (0.60-1.20) mg/dL Est GFR ( Amer) > 60 (> 60) Est GFR (Non-Af Amer) > 60 (> 60) BUN/Creatinine Ratio 10 (6-26) Glucose 277 H (70-105) mg/dL POC Glucose 235 H (70-99) mg/dL Calculated Osmolality 298 (280-300) Calcium 9.8 (8.6-10.3) mg/dL Troponin I < 0.03 (< 0.04) ng/mL TSH 4.418 (0.340-5.600) mcIU/mL 06/17/17 Range/Units 19:27 WBC 6.9 (4.3-11.1) K/mcL RBC 4.92 (3.82-4.97) M/mcL Hgb 13.9 (11.5-15.4) g/dL Hct 41.9 (35.3-44.9) % MCV 85.2 (83.0-100.0) fL MCH 28.3 (28.0-33.3) pg MCHC 33.2 (31.6-35.5) g/dL RDW 13.5 (11.5-14.5) % Plt Count 273 (140-400) K/mcL MPV 10.0 (9.4-12.4) fL Immature Gran % 0.1 (0-4) % Seg Neutrophils % 52.3 % Lymphocytes % 37.5 % Monocytes % 7.7 % Eosinophils % 1.7 % Basophils % 0.7 % Neutrophils # 3.6 (1.6-8.9) K/mcL Lymphocytes # 2.6 (0.6-4.6) K/mcL Monocytes # 0.5 (0.0-1.3) K/mcL Eosinophils # 0.1 (0.0-0.6) K/mcL Basophils # 0.1 (0.0-0.2) K/mcL Immature Plt Fraction 2.2 (1.1-6.1) % PT (9.4-12.1) Seconds INR Sodium (136-145) mEq/L Potassium (3.5-5.1) mEq/L Chloride (98-107) mEq/L Carbon Dioxide (23-29) mEq/L BUN (8-23) mg/dL Creatinine (0.60-1.20) mg/dL Est GFR ( Amer) (> 60) Est GFR (Non-Af Amer) (> 60) BUN/Creatinine Ratio (6-26) Glucose (70-105) mg/dL POC Glucose (70-99) mg/dL Calculated Osmolality (280-300) Calcium (8.6-10.3) mg/dL Troponin I (< 0.04) ng/mL TSH (0.340-5.600) mcIU/mL Critical Care Time Critical Care Time: Yes Total Critical Care Time: 35 Attestation: Critical care performed: Time is exclusive of separately billable procedures. Time includes: direct patient care, patient reassessment, coordination of patient care, interpretation of data (laboratory data, radiology data, and respiratory data), review of patient's medical records, medical consultation and documentation of patient care. Procedures included in critical care time: Procedures excluded from critical care time: Attestation Statement - Attestation Attestation: I, Chris Lemus MD, personally evaluated this patient and discussed their management with the resident physician. I reviewed the resident's note and agree with the documented findings, medical decision making, and plan of care. 76-year-old female presents to the emergency department with a complaint of elevated blood pressure with headache and shakiness and weakness. Patient states symptoms started about one hour prior to arrival. She suddenly became very hot and flushed and started feeling shaky all over. Then she felt diaz weakness. She then developed some bilateral temporal parietal area headache. No blurred vision or double vision but states that her eyes just feel a little fuzzy. No focal numbness or tingling or weakness. She does complain of her legs feeling a little tingly in both legs. They be a little worse on the left. No difficulty with speech or swallowing or balance. Patient has a history of hypertension. She denies any chest pain with the episode. She does admit to some mild shortness of breath and states it felt like her heart was racing. On arrival here in the emergency department her heart rate was in the 130s. Systolic blood pressure was too high to read on the monitor and diastolic blood pressure was 175 monitor. On examination patient is a well-developed well-nourished anxious elderly female in no acute distress. She is alert and oriented 3. There is no cyanosis or diaphoresis. She does appear flushed. Breath sounds are clear and equal bilaterally. Heart is tachycardic and regular. Abdomen is soft and nontender with normal bowel sounds. No gross focal neurological deficits. EKG shows a sinus rhythm with first-degree block. Ventricular rate 83. There is some slight ST elevation in lead 3 and aVF. I do not feel this meets STEMI criteria. EKG was discussed with the strategic account manager, Dr. Cassidy , and he agreed this does not appear to be a STEMI. He recommended serial troponins. Again patient is having no chest pain. Chest x-ray was negative. Head CT negative. Labs reviewed and unremarkable. Troponin normal. Patient received IV labetalol and Ativan and was placed on nicardipine infusion. She had good results with significant lowering of her blood pressure. The nicardipine infusion was discontinued and she has remained stable while in the emergency department. The hospitalist, Dr. Denton, was consulted and accepted admission of the patient.
[2017-06-18] MEDS ORDERED: Acetaminophen 325 MG TABLET PO PRN (01:35)
[2017-06-18] MEDS: niCARdipine 40 MG/200 ML MLS IVC SCH (02:03)
[2017-06-18] MEDS ORDERED: Naloxone 0.4 MG/ML INJ IVP PRN (02:34)
[2017-06-18] MEDS ORDERED: Ondansetron ODT 4 MG TAB.RAPDIS PO PRN (02:37)
[2017-06-18] MEDS ORDERED: *HR* LORazepam 0.5 MG TABLET PO PRN (02:37)
[2017-06-18] MEDS ORDERED: Nitroglycerin 0.4 MG TAB.SUBL SL PRN (02:37)
[2017-06-18] MEDS ORDERED: cloNIDine HCl 0.1 MG TABLET PO PRN (02:37)
--- NOTE | 2017-06-18 03:12 | Internal Med History&Physical ---
Date of Encounter: 06/18/17 Time of Encounter: 01:00 Internal Medicine - H&P: HPI Chief complaint: High blood pressure Admitted From: Home Plans for Post Hospital Care: Home History of present illness: Ms. Martin is a 76 year old female present to ER for high blood pressure. 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 Patient said she is a fine this morning. However, since afternoon, patient has suddenly onset blurred vision, face flashing, hand shaking, and the palpitation. In the emergency room, she was a found BP high to over 300 with diastolic BP 175. Patient denies chest pain or shortness of breath. Patient was treated with IV labetolol and nicardipine drip. Her BP laterly drop to 130s even we discontinued the nicardipine drip. Patient said this is the third time she has hypertensive crisis within last one year, and the last time the hypertensive crisis was 1 month ago. Patient had Whipple surgery for pancreas tumor in 2002 and adrenal pheochromocytoma resection in 2007. When I saw patient in floor, she feels mild headache but no further complaints. Past Med Surg Social Fam HX - Past Medical History Medical history: diabetes, hypertension, myocardial infarction Psychiatric history: anxiety - Past Surgical History Surgical History: appendectomy, cholecystectomy, other - Social History Smoking Status: Never smoker Smokeless Tobacco Status: No Alcohol use: none Drug use: none - Family History Mother Living Status: Hx Family Cardiac Disorders: Yes Hx Family Cancer: No Father Living Status: Hx Family Cancer: Yes Internal Medicine - H&P: Meds LORazepam [Ativan] 0.5 mg PO BID PRN 06/13/16 [History] Pantoprazole Sodium [Protonix] 40 mg PO DAILY PRN 06/13/16 [History] Metoprolol XL (24 HR) Succ [Toprol Xl] 25 mg PO BID 04/30/17 [History] Nitroglycerin [Nitrostat] 0.4 mg SL Q5M PRN 04/30/17 [History] Ondansetron [Zofran] 8 mg PO Q8H PRN 04/30/17 [History] Metformin HCl [Metformin HCl ER] 500 mg PO QPM 06/17/17 [History] cloNIDine HCl [CloNIDine HCl] 0.1 mg PO BID PRN 06/17/17 [History] 3 Allergy/AdvReac Type Severity Reaction Status Date / Time JAIRON Inhibitors Allergy Anaphylaxis Verified 06/17/17 19:42 clindamycin AdvReac Rash Verified 06/17/17 19:42 Penicillins AdvReac Rash Verified 06/17/17 19:42 ivp dye Allergy See Uncoded 09/17/16 11:55 Comments All Systems PM: A 10-system review of systems was performed and is negative for pertinent findings except as documented above in the HPI. - Constitutional Vitals: Temp Pulse Resp BP Pulse Ox 98.0 F 76 16 137/63 97 06/17/17 23:44 06/17/17 23:44 06/17/17 23:44 06/17/17 23:44 06/17/17 23:44 General appearance: Present: A&O X 3, no acute distress, answers questions appropriately - Head Head exam: Present: atraumatic, normocephalic - Eye Eye exam: Present: PERRL, conjuntiva pink, sclera anicteric Pupils: Present: PERRL - Neck Neck exam general surgery: Present: supple, trachea midline. Absent: lymphadenopathy - Respiratory Respiratory exam: Present: CTAB. Absent: accessory muscle use, rales, rhonchi, wheezes - Cardiovascular Cardiovascular exam: Present: RRR, +S1, +S2. Absent: diastolic murmur, gallop, rubs, systolic murmur - GI/Abdominal GI/Abdominal exam: Present: normal bowel sounds, soft, no peritoneal signs. Absent: distended, tenderness - Extremities Exam Extremities exam: Present: warm, radial pulses palpable and symmetrical. Absent : calf tenderness, cyanotic, pedal edema - Neurological Exam Neurological exam: Present: CN II-XII intact, oriented X3, no focal deficits. Absent: pronater drift, facial droop, speech deficit - Skin Skin exam: Present: dry, intact Internal Med - H&P Results - Labs CBC & Chem 7: 06/17/17 19:27 06/17/17 19:19 - Assessment and plan (1) MEN 2 (multiple endocrine neoplasia, type 2) Current Visit: Yes Status: Acute Assessment and plan: Patient has a pancreas tumor and pheochromocytoma. She was considered MEN type II previously by other hospital. Patient's sister also has adrenal tumors. 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 - Continue cardiac monitoring and closely monitor vitals, treated hypertensive crisis - We do not have endocrinology in our hospital, after discussing with patient and family, there agree to be transfer to [facility] for further management. I have called [facility] transfer center, waiting for call back. (2) Pheochromocytoma Current Visit: Yes Status: Acute Assessment and plan: Management as above Qualifiers: Laterality: unspecified laterality Qualified Code(s): D35.00 - Benign neoplasm of unspecified adrenal gland (3) Type 2 diabetes mellitus Current Visit: No Status: Chronic Assessment and plan: Place patient on sliding scale insulin coverage Qualifiers: Diabetes mellitus skilled nursing insulin use: without salvage determiner use Diabetes mellitus complication status: with neurologic complications Diabetes mellitus complication detail: with polyneuropathy Qualified Code(s): E11.42 - Type 2 diabetes mellitus with diabetic polyneuropathy (4) Hypertension Current Visit: No Status: Chronic Assessment and plan: Continue home medications. Closely monitor patient for hypertensive crisis. Qualifiers: Hypertension type: essential hypertension Qualified Code(s): I10 - Essential (primary) hypertension (5) DVT prophylaxis Current Visit: No Status: Acute Assessment and plan: Expected patient being transferred soon. Patient ambulating well now. No anticoagulation placed. - Time Spent With Patient Total time spent is greater than 50% in coordination of care (as documented) at patient's floor/unit and/or counseling patient: 40 min Greater than 35 minutes
--- NOTE | 2017-06-18 06:47 | Discharge Summary ---
Orders not resulted at time of discharge: Patient was transferred to [facility]. Follow-up instruction please follow [facility] discharge summary Date of Encounter: 06/18/17 Time of Encounter: 04:00 - Discharge Diagnosis (1) MEN 2 (multiple endocrine neoplasia, type 2) Priority: Primary Status: Acute Assessment and Plan: Patient has a pancreas tumor and pheochromocytoma. She was considered MEN type II previously by other hospital. Patient's sister also has adrenal tumors. 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 - Continue cardiac monitoring and closely monitor vitals, treated hypertensive crisis - We do not have endocrinology in our hospital, after discussing with patient and family, there agree to be transfer to [facility] for further management. I have called [facility] transfer center, waiting for call back. (2) Pheochromocytoma Priority: Primary Status: Acute Assessment and Plan: Management as above Qualifiers: Laterality: unspecified laterality Qualified Code(s): D35.00 - Benign neoplasm of unspecified adrenal gland (3) Type 2 diabetes mellitus Priority: Secondary Status: Chronic Assessment and Plan: Place patient on sliding scale insulin coverage Qualifiers: Diabetes mellitus flower arranger insulin use: without fdc use Diabetes mellitus complication status: with neurologic complications Diabetes mellitus complication detail: with polyneuropathy Qualified Code(s): E11.42 - Type 2 diabetes mellitus with diabetic polyneuropathy (4) Hypertension Priority: Secondary Status: Chronic Assessment and Plan: Continue home medications. Closely monitor patient for hypertensive crisis. Qualifiers: Hypertension type: essential hypertension Qualified Code(s): I10 - Essential (primary) hypertension (5) DVT prophylaxis Priority: Secondary Status: Acute Assessment and Plan: Expected patient being transferred soon. Patient ambulating well now. No anticoagulation placed. Hospital course: Ms. Martin is a 76 year old female admitted for hypertensive crisis with BP high to 300. 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 Patient has resection of pheochromocytoma in 2007. In last 1 year patient has 3 episode of hypertensive crisis. 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 Called [facility] transfer center. Patient will transfer to [facility] for further management. - Time Spent with Patient Total time spent providing and/or coordinating discharge services: 20 minutes Less than 30 minutes - Discharge Medications Home Medications: LORazepam [Ativan] 0.5 mg PO BID PRN 06/13/16 [History] Pantoprazole Sodium [Protonix] 40 mg PO DAILY PRN 06/13/16 [History] Metoprolol XL (24 HR) Succ [Toprol Xl] 25 mg PO BID 04/30/17 [History] Nitroglycerin [Nitrostat] 0.4 mg SL Q5M PRN 04/30/17 [History] Ondansetron [Zofran] 8 mg PO Q8H PRN 04/30/17 [History] Metformin HCl [Metformin HCl ER] 500 mg PO QPM 06/17/17 [History] cloNIDine HCl [CloNIDine HCl] 0.1 mg PO BID PRN 06/17/17 [History] Allergies/Adverse Reactions: 3 Allergy/AdvReac Type Severity Reaction Status Date / Time JAIRON Inhibitors Allergy Anaphylaxis Verified 06/17/17 19:42 clindamycin AdvReac Rash Verified 06/17/17 19:42 Penicillins AdvReac Rash Verified 06/17/17 19:42 ivp dye Allergy See Uncoded 09/17/16 11:55 Comments Date of admission: 06/17/17 22:47 Primary care physician: PCP NONE Discharging clinician: Palomo Terry Anticipated date of discharge: 06/18/17 - Constitutional Vitals: Temp Pulse Resp BP Pulse Ox 98.6 F 74 16 206/93 96 06/18/17 03:39 06/18/17 03:39 06/18/17 03:39 06/18/17 05:53 06/18/17 03:39 General appearance: Present: A&O X 3, no acute distress, answers questions appropriately - Head Head exam: Present: atraumatic, normocephalic - Eye Eye exam: Present: PERRL, conjuntiva pink, sclera anicteric Pupils: Present: PERRL - Neck Neck exam general surgery: Present: supple, trachea midline. Absent: lymphadenopathy - Respiratory Respiratory exam: Present: CTAB. Absent: accessory muscle use, rales, rhonchi, wheezes - Cardiovascular Cardiovascular exam: Present: RRR, +S1, +S2. Absent: diastolic murmur, gallop, rubs, systolic murmur - GI/Abdominal GI/Abdominal exam: Present: normal bowel sounds, soft, no peritoneal signs. Absent: distended, tenderness - Extremities Exam Extremities exam: Present: warm, radial pulses palpable and symmetrical. Absent : calf tenderness, cyanotic, pedal edema - Neurological Exam Neurological exam: Present: CN II-XII intact, oriented X3, no focal deficits. Absent: pronater drift, facial droop, speech deficit - Skin Skin exam: Present: dry, intact - Patient Status Disposition: Transfer Critical Access Hosp Condition: Fair Functional capacity at discharge: independent ambulation Overall status at discharge: patient is back to baseline - Discharge Instructions Follow Up With: NONE,PCP [Primary Care Provider] - - Diet and Activity Diet: advance to your usual diet, diabetic diet
[2017-06-18 06:54] VITALS: BP 180/89
[2017-06-18] MEDS ORDERED: Metoprolol XL (24 HR) Succ 25 MG TAB.ER.24H PO SCH (09:00)
--- NOTE | 2017-06-22 10:27 | Electrocardiograph Report ---
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
== END 2017-06-18 06:56 | disposition critical access hospital (66) ==
LOC: EMEROO 18:51 → 3BNU 18:51
PROVIDERS: ADMIT Internal Medicine; ATTEND Internal Medicine Cardiovascular Disease